=== PATIENT | male | born 1955 | race Caucasian/White ===

== ENCOUNTER 2018-05-16 04:29 | Emergency (ER) | payer OTHER, SELFPAY ==
[2018-05-16 04:30] VITALS: BP 167/82; PULSE 66; RESP 16; TEMP 36.1; O2SAT 100; BMI 28.9
--- NOTE | 2018-05-16 05:11 | EKG12_ITS ---
Test Reason : ABDOMINAL PAIN Blood Pressure : / mmHG Vent. Rate : 057 BPM Atrial Rate : 057 BPM P-R Int : 176 ms QRS Dur : 102 ms QT Int : 424 ms P-R-T Axes : 047 -08 -06 degrees QTc Int : 412 ms Sinus bradycardia Voltage criteria for left ventricular hypertrophy Abnormal ECG Confirmed by MIRNA HOOPER, PRETTY ([id number]), acquisitions editor TEREZA RODRIGUEZ ([id number]) on 05/21/2018 11:19:50 AM Referred By: STEPHANIE Confirmed By:PRETTY BRADLEY MD
--- NOTE | 2018-05-16 05:23 | RAD_ITS ---
STUDY: X-RAY CHEST REASON FOR EXAM: Male, 62 years old. Abdominal pain. TECHNIQUE: PA and lateral chest. COMPARISON: None. FINDINGS: The lungs are clear and expanded. There is no demonstrated pleural abnormality. Normal size heart. Normal mediastinum and beti. Normal visualized pulmonary arteries. Normal visualized aortic arch and descending thoracic aorta. Normal visualized thoracic spine. Surgical anchors right humeral head. There is no demonstrated abnormality of the visualized soft tissue structures of the upper abdomen. RAD/Chest PA and Lateral IMPRESSION: No acute cardiopulmonary disease. Electronically Signed: Darion Branch MD at 5:46 EST , Service support ,
[2018-05-16 05:25] LABS: Absolute Lymphocyte Count 1.67 X10^3/ul (0.83-4.51); Absolute Neutrophil Count 2.6 X10^3/uL (2.0-7.7); Basophil# 0.03 X10^3/uL; Basophil% 0.6 % (0-1); Eosinophil# 0.05 X10^3/uL; Eosinophils% 1.1 % (0-5); Hematocrit 38.4 % (40-54); Hemoglobin 13.3 g/dl (13.0-16.5); Lymphocyte # 1.67 X10^3/ul (4.0); Lymphocyte % 35.5 % (19-41); Mean Corp Hgb Conc 34.6 g/gl (32-36); Mean Corpuscular Volume 89.5 fL (80-94); Mean Platelet Vol. 8.7 fl (6.2-12.0); Monocyte# 0.38 X10^3/uL; Monocyte% 8.1 % (0-10); Neutrophil # 2.58 X10^3/uL (2.7-7.7); Neutrophil % 54.7 % (47-70); Platelet Count 154 K/mm3 (150-450); RBC Distribution Width CV 12.4 % (11.6-14.6); RBC Distribution Width SD 39.8 fl (35.1-43.9); Red Blood Count 4.29 M/mm3 (4.6-6.2); White Blood Count 4.7 K/mm3 (4.4-11.0)
[2018-05-16 05:28] LABS: POSITIVE COUNT NO; POSITIVE DIFFERENTIAL NO; POSITIVE MORPHOLOGY NO
[2018-05-16] MEDS: 0.9% Normal Saline 1,000 ML 999 ML IV (05:38)
[2018-05-16] MEDS: Ondansetron 4 MG/2 ML Vial IV (05:38)
[2018-05-16] MEDS: Morphine 4 MG/ML Syringe IV (05:38)
[2018-05-16 05:40] LABS: ALB/GLOB Ratio 1.2 RATIO (0.9-2.4); AST(SGOT) 21 U/L (15-37); Alanine Aminotransfer ALT/SGPT 29 U/L (16-61); Albumin, Serum 3.6 g/dL (3.2-5.0); Alkaline Phosphatase 130 U/L (45-117); Anion Gap 9 (5-15); BUN 14 mg/dL (7-18); BUN/Creat Ratio 17.2 RATIO (10-20); Calcium,Total 8.7 mg/dL (8.5-10.1); Chloride 110 mmol/L (98-107); Creatinine, Serum 0.82 mg/dL (0.70-1.30); EST Glomerular Filtration Rate 101 mL/min (>60); Est Glom Filt Rate - Afr Amer 123 mL/min (>60); Estimated Creatinine Clearance 101.21 ml/min; Glucose 90 mg/dL (74-106); Lipase 146 U/L (73-393); Potassium 4.1 mmol/L (3.5-5.1); Protein, Total 6.6 g/dL (6.4-8.2); Sodium Level 143 mmol/L (136-145)
--- NOTE | 2018-05-16 06:21 | ED.DEP ---
ED Disposition - Plan for ED Patient: Instructions: ED Abdominal Pain Unkn Cause Prescriptions: Hydrocodone Bitart/Apap 5-325 [[place] 5MG-325MG] 1 tab PO Q6H PRN PRN 3 Days #10 tab PRN Reason: Pain Referrals: [facility],Out of [Primary Care Provider] -
--- NOTE | 2018-05-16 06:29 | ED.DCSUM_ITS ---
- ER Visit Summary Date of Service: 05/16/18 Chief Complaint: Abdominal pain History of Present Illness: The patient is a 62 M who presents with abdominal pain. It is been occurring intermittently for the past 2 months. He was seen at [place] 1 week ago. He had labs and a CT of the abdomen which was normal. He saw Dr. Segundo yesterday. He is scheduled for an EGD on May 24. His pain worsened last night. It is epigastric. He reports it is severe. He has also had some cough. No nausea vomiting diarrhea. No chest pain or shortness of breath. Physical Examination: Blood pressure 167/82 vitals otherwise normal Moist mucous membranes Heart regular rate and rhythm Lungs are clear Abdomen soft nondistended he does have epigastric abdominal tenderness without guarding without rebound Alert Test Results: EKG shows sinus rhythm at a rate of 57. Labs unremarkable including negative troponin normal hepatic function and lipase. Emergency Department Course and Treatment: Patient was treated here with IV fluids morphine and Zofran. He does report symptomatic improvement. He is already on omeprazole and Carafate. I suspect his symptoms are related to gastritis. He was offered [place] but he notes that he has recently been trying to eliminate multiple addictive medications and does not want to take opiates. I explained I am not really have any other medications to offer him at this point. He was advised to follow-up with Dr. Segundo and was discharged home. Treatment Plan: [] Disposition: Discharge Impression: Epigastric abdominal pain This note was generated with [employer] dictation software. It may contain incorrect words, spelling, and punctuation that were not noted in review of the chart prior to signing ED Disposition - Plan for ED Patient: Instructions: ED Abdominal Pain Unkn Cause Prescriptions: Hydrocodone Bitart/Apap 5-325 [[place] 5MG-325MG] 1 tab PO Q6H PRN PRN 3 Days #10 tab PRN Reason: Pain Referrals: [facility],Out of [Primary Care Provider] -
[2018-05-16 06:40] VITALS: RESP 16
== END 2018-05-16 06:44 | disposition home or self-care (01) ==
PROVIDERS: Emergency Provider Emergency Medicine
DX: R10.13 Epigastric pain (principal); I10 Essential (primary) hypertension; Z79.899 Other long term (current) drug therapy
CPT/HCPCS: 71046; 80053; 83690; 84484; 85025; 93005; 96361; 96374; 96375; 99283; J7030; A4216; J2405

== ENCOUNTER 2019-05-01 19:44 | Emergency (ER) | payer OTHER, SELFPAY ==
[2019-05-01 19:46] VITALS: BP 145/85; PULSE 81; RESP 18; TEMP 36.6; O2SAT 100; BMI 24.1
--- NOTE | 2019-05-01 21:25 | RAD_ITS ---
STUDY: X-RAY - RIGHT HAND REASON FOR EXAM: Male, 63 years old. patient states he has a splinter in his hand, located in thenar area near thumb TECHNIQUE: 3 view(s) of the hand. COMPARISON: None. FINDINGS: Normal radiocarpal articulation. Normal distal radioulnar joint. Normal visualized carpal bones. Normal carpal articulations Normal carpometacarpal articulation of the thumb. Normal second through fifth carpometacarpal joints. Demineralized metacarpi. Normal metacarpophalangeal joint of the thumb. Normal interphalangeal joint of the thumb. Normal proximal and distal phalanges of the thumb. Normal metacarpophalangeal joints of the second through fifth fingers. There is diffuse articular joint space narrowing of the proximal and distal interphalangeal joints of the second through fifth fingers, but without erosive changes or periarticular soft tissue swelling. Normal phalanges of the second through fifth fingers. The soft tissue structures are unremarkable. RAD/Hand Min 3 Views IMPRESSION: Demineralization and degenerative change with no evidence of definitive soft tissue foreign body. Electronically Signed: Bob Andres DO at 21:46 EST , Service support ,
--- NOTE | 2019-05-01 23:32 | ED.DEP ---
ED Disposition - Plan for ED Patient: Instructions: FOREIGN BODY, Soft Tissue [Not Removed] Prescriptions: Clindamycin [Cleocin] 300 mg PO 4X/DAY #80 capsule Referrals: ES BERNSTEIN [Other] Lauro Lott MD [STAFF PHYSICIAN] -
--- NOTE | 2019-05-01 23:36 | ED.VISSUMM ---
- ER Visit Summary Date of Service: 05/01/19 Chief Complaint: Splinter History of Present Illness: The patient is a 63 M presenting with splinter in his right hand. Patient was sanding wood and felt a wood splinter go into his right hand. This occurred just prior to arrival. He went to urgent care and was advised to come to the ED. His tetanus is up-to-date. He denies other injuries. Physical Examination: Vitals are stable. Patient is afebrile. Alert no acute distress. HEENT exam is unremarkable. Neck is supple. Lungs are clear and equal bilaterally. Heart is regular rate and rhythm. Extremities puncture wound to right thenar eminence. Tendon function normal. Normal cap refill. Skin is warm and dry. No focal neurologic deficit. Remainder of exam is unremarkable. Emergency Department Course and Treatment: Right hand x-ray showed demineralization and degenerative change with no evidence of definitive soft tissue foreign body. Area was anesthetized with lidocaine. Probed for foreign body without success. Irrigated the wound. He was given clindamycin. Advised to follow-up with Dr. Lott. Advised return to ED for worsening complaints. Disposition: Discharge home Impression: Splinter right hand This note was generated with [employer] dictation software. It may contain incorrect words, spelling, and punctuation that were not noted in review of the chart prior to signing ED Disposition - Plan for ED Patient: Instructions: FOREIGN BODY, Soft Tissue [Not Removed] Prescriptions: Clindamycin [Cleocin] 300 mg PO 4X/DAY #80 cap Prescription Printed Referrals: ES BERNSTEIN [Other] Lauro Lott MD [STAFF PHYSICIAN] -
[2019-05-01] MEDS: Clindamycin HCl 150 MG Capsule 300 MG PO (23:44)
[2019-05-01 23:47] VITALS: RESP 18; O2SAT 99
== END 2019-05-01 23:49 | disposition home or self-care (01) ==
PROVIDERS: Emergency Provider Emergency Medicine
DX: S60.551A Superficial foreign body of right hand, initial encounter (principal); W45.8XXA Other foreign body or object entering through skin, initial encounter; Y93.9 Activity, unspecified; Y92.9 Unspecified place or not applicable; I10 Essential (primary) hypertension; Z79.899 Other long term (current) drug therapy
CPT/HCPCS: 73130; 99282

== ENCOUNTER 2019-05-06 08:50 | Day surgery (SDC) | payer OTHER, SELFPAY ==
[2019-05-05 09:49] VITALS: BMI 24.1
--- NOTE | 2019-05-05 22:50 | HP.PCM_ITS ---
History and Physical Date of Admission: 05/06/19 HISTORY OF PRESENT ILLNESS 63 year old man presents with a traumatic puncture wound right palm at the thenar eminence with a retained wooden splinter foreign body when he sustained the injury on 05/01/19 while sanding some wood at home. He went to the ED X-ray showed no fracture and no foreign body. An attempt was done in the ED to remove the wooden splinter foreign body without success. He was discharged on Cleocin. He denies fever. He has minimal discomfort unless he grabs something in his palm that presses against the puncture wound. He denies drainage as the puncture wound has scabbed over. He presents today for further evaluation and treatment. PAST MEDICAL HISTORY Abdominal aortic aneurysm Arthritis Bone fracture Degenerative disc disease, cervical Gastrointestinal problem High cholesterol History of back problems Hives Kidney stones Neurogenic bladder Sliding hiatal hernia Trigeminal neuralgia of left side of face UTI (urinary tract infection) High blood pressure PAST SURGICAL HISTORY Deviated nasal septum appendectomy broken finger repair of right rotator cuff left rotator cuff repair ALLERGIES Penicillins MEDICATIONS Amlodipine Besylate/Benazepril Mometasone Furoate [Nasonex] Omeprazole Pravastatin [Pravachol] Clindamycin [Cleocin] Metoprolol Succinate Naproxen Sodium FAMILY HISTORY Father - Angina at rest, Heart disease, Hypertension, High cholesterol Mother - Arthritis, Heart disease, Hypertension Brother - Diabetes SOCIAL HISTORY Smoking Status: Never smoker alcohol intake: never substance use type: does not use REVIEW OF SYSTEMS General - Denies fever, fatigue, and weight loss. Eyes - Denies cataracts and glaucoma. ENT - Denies nasal congestion and sore throat. Has chronic sinus problems. Endocrine - Denies excessive thirst and urination. Skin - Denies suspicious lesions and skin cancer. Musculoskeletal - Contreras s joint pain, joint stiffness, and back pain. Denies weakness of muscles and joints and arthritis. Neuro - Has headaches. Cardiovascular - Denies chest pain, fatigue, and shortness of breath with exertion. Psych - Denies anxiety and depression. Respiratory - Denies chronic cough and shortness of breath. Gastrointestinal - Denies nausea, vomiting, diarrhea, and constipation. Hematologic - Denies abnormal bruising and bleeding. Genitourinary - Denies hematuria and urinary frequency. PHYSICAL EXAMINATION General - Alert and Oriented. HEENT - PERRL. EOMI. Throat is clear. Neck - Supple and nontender. No cervical adenopathy. Lungs - Clear to auscultation. Heart - Regular rate and rhythm. Abdomen - Soft and nondistended. Extremities - FROM. No axillary adenopathy. Radial pulses are palpable. Patient is right hand dominant. On the right palm at the thenar eminence is a puncture wound. No evidence of infection. Patient states the splint went laterally toward the central palm. He is able to make a fist and has reasonable stacker straightener strength but has limitations with increasing stacker straightener secondary to discomfort. No purulent drainage noted. Fingers are warm with good capillary refill. No sensory deficits. Neuro - CN II-XII grossly intact. Psych - Normal mood and affect. ASSESSMENT 1. Puncture wound right palm at thenar eminence with foreign body. 2. Wooden splinter foreign body right palm at thenar eminence PLAN X-ray reviewed. No fracture and no foreign body seen. Continue Cleocin antibiotics. Recommend operative intervention with surgical preparation right palm at thenar eminence with excisional debridement puncture wound and irrigation and drainage and removal wooden splinter foreign body. Surgery will be done under Onyx Block anesthesia on an outpatient basis. Will send tissue to Pathology for analysis as well as to Microbiology for culture. A positive culture will necessitate antibiotic therapy. Will leave the wound partially open and begin wound care with Silver dressing changes daily. After surgery will encourage range of motion exercises to minimize stiffness. Patient was informed of the risks and complications of the procedure including alternatives to surgery. These were discussed with the patient personally. Patient voices understanding and wishes to proceed. Some of the risks and complications were included in a form from the [place] [employer]. Some of the risks and complications that were discussed included but were not inclusive of failure to diagnose including symptom relief, pain, infection, numbness, stiffness, loss of digit, RSD (CRPS), need for further surgery, contracture, and wound healing problems.
--- NOTE | 2019-05-06 08:57 | EKG12_ITS ---
Test Reason : PRE OP Blood Pressure : / mmHG Vent. Rate : 066 BPM Atrial Rate : 066 BPM P-R Int : 162 ms QRS Dur : 098 ms QT Int : 380 ms P-R-T Axes : 048 -07 028 degrees QTc Int : 398 ms Normal sinus rhythm Normal ECG When compared with ECG of 16-MAY-2018 05:24, Nonspecific T wave abnormality has replaced inverted T waves in Inferior leads Confirmed by QUETA LOBATO ([id number]), editor book LENA NELSON ([id number]) on 05/09/2019 9:52:03 AM Referred By: Lauro Lott Confirmed By:QUETA LOBATO
[2019-05-06 09:26] VITALS: BP 135/80; PULSE 70; RESP 15; TEMP 36.8; O2SAT 99; BMI 24.7
[2019-05-06] MEDS: Lactated Ringers 1,000 ML 100 ML IV (09:35)
[2019-05-06 09:44] LABS: BUN 18 mg/dL (7-18); Chloride 112 mmol/L (98-107); Creatinine, Serum 0.89 mg/dL (0.70-1.30); Estimated Creatinine Clearance 94.76 ml/min; Glucose 97 mg/dL (74-106); Sodium Level 144 mmol/L (136-145)
[2019-05-06 09:45] LABS: Anion Gap 4 (5-15)
[2019-05-06 09:54] LABS: BUN/Creat Ratio 20.3 RATIO (10-20); EST Glomerular Filtration Rate 92 mL/min (>60); Est Glom Filt Rate - Afr Amer 111 mL/min (>60); Potassium 4.5 mmol/L (3.5-5.1)
--- NOTE | 2019-05-06 10:25 | FORE_PTH ---
PATIENT: CONNIE MORGAN [place] [facility] [place][id number] AGE/SX: 63/M ROOM: RE05/06/[address]: Dr. Lauro Lott MD : [id number] BED: DIS: 05/06/2019 SPEC #: [id number] RECD: 05/06/19 11:53 STATUS: EH VIRI #: [id number] LEV: 05/06/19 10:[address]: Lauro Lott DEPT: SURGICAL PATHOLOGY RECD BY: Dorian Childs Tissues: FOREIGN BODY Procedures: Special Stain Group I Surgery Specimen Level III AFB Stain (control) GMS Stain (control) HEADER OPERATION: Surgical preparation palm at thenar eminence PRE-OP DIAGNOSIS: Puncture wound right palm at thenar eminence with foreign body TISSUE SUBMITTED: Wooden splinter foreign body right palm MICROSCOPIC DIAGNOSIS Wooden splinter foreign body right palm: A piece of hyperkeratotic skin with acute and chronic inflammation and reactive changes. Special stains for acid fast bacilli and fungi are negative for organisms; matched controls are appropriate. Wooden splinter foreign body (gross only). GRACE:ofelia 05/07/19 MICROSCOPIC DESCRIPTION Slides are reviewed. GROSS DESCRIPTION Received in fixative is one container labeled with the patient's name and designated wooden splinter foreign body right palm. The specimen consists of a round piece of gillette-white skin with underlying tissue measuring 0.5 x 0.6 cm and up to 0.5 cm in thickness. This piece is bisected. Also present in the container is wooden splinter foreign body measuring 1.7 x 0.2 x 0.1 cm. The skin piece is entirely submitted in one cassette. The wooden splinter foreign body is for gross identification only. / GRACE:ofelia 05/06/19 TC:2 CPT: 47578, 69526 x2
--- NOTE | 2019-05-06 10:55 | PCM.OPRPT ---
Report of Operation Date of Procedure: 05/06/19 Pre-Operative Diagnosis: 1. Puncture wound right palm at thenar eminence with foreign body. 2. Wooden splinter foreign body right palm at thenar eminence. Post-Operative Diagnosis: 1. Puncture wound right palm at thenar eminence with foreign body. 2. Submuscular wooden splinter foreign body right palm at thenar eminence. Surgery/Procedure Performed:: Surgical preparation right palm at thenar eminence with excisional debridement puncture wound and irrigation and drainage and removal submuscular wooden splinter foreign body. Description of Surgical Findings:: 63 year old man presents with a traumatic puncture wound right palm at the thenar eminence with a retained wooden splinter foreign body when he sustained the injury on 05/01/19 while sanding some wood at home. He went to the ED X-ray showed no fracture and no foreign body. An attempt was done in the ED to remove the wooden splinter foreign body without success. He was discharged on Cleocin. He denies fever. He has minimal discomfort unless he grabs something in his palm that presses against the puncture wound. He denies drainage as the puncture wound has scabbed over. Patient was informed of the risks and complications of the procedure including alternatives to surgery. These were discussed with the patient personally. Patient voices understanding and wishes to proceed. Some of the risks and complications were included in a form from the [place] [employer]. Some of the risks and complications that were discussed included but were not inclusive of failure to diagnose including symptom relief, pain, infection, numbness, stiffness, loss of digit, RSD (CRPS), need for further surgery, contracture, and wound healing problems. Total tourniquet time - 16 minutes. Length of wooden splinter foreign body - 2.2 cm. The tract of the wooden splinter foreign body extended through the abductor pollicis brevis muscle into the flexor pollicis brevis muscle. type proof reproducer: None Type of Anesthesia:: General Specimen's removed: Right palm at thenar eminence puncture wound and wooden splnter foreign body to Pathology and Microbiology. Drains: None. Estimated Blood Loss (mL): 2 ml. Description of Procedure: Patient was taken to OR in supine position and was placed under general anesthesia. The right upper extremity was prepped and draped in the usual fashion. SCD's were placed for DVT prophylaxis. Perioperative antibiotics were given intravenously. Using xylocaine with epinephrine, the area of the puncture wound right palm at thenar eminence was infiltrated for postop pain relief. The right upper extremity was elevated and wrapped with an Esmarch bandage as the tourniquet was elevated to 250 mmHg. Under loupe magnification, I proceeded with surgical preparation of the right palm at thenar eminence with excisional debridement of the puncture wound in a circular fashion. Excision extended down to the thenar muscles. The wooden splinter foreign body was deep to the abductor pollicis muscle. I extended the wound in a zig zag fashion both proximally and distally to further expose the thenar muscles. The wooden splinter foreign body was palpable laterally toward the central aspect of the palm into the flexor pollicis brevis muscle. I was able to retrieve the wooden splinter foreign body in its entirety. It measured 2.2 cm. The tract of the foreign body into the muscle was irrigated with saline. Some exudate present and some scar tissue present was excised and debrided as well and some of the tissue was sent to Microbiology for culture and to Pathology for analysis to rule out carcinoma. The tip of the foreign body was also sent to Microbiology as well. No other palpable foreign bodies were noted and no other visual foreign bodies were noted. I then loosely approximated the zig and the zag portion of the wound with 5-0 Prolene simple interrupted and vertical mattress interrupted sutures. I then dressed the central puncture wound area with Silver dressing as well as I placed Silver dressing into the zig and the zag portion of the incisions to help absorb any drainage initially. The size of the central puncture wound after excision and debridement was 1 x 0.6 cm. The tourniquet was released after 16 minutes. Hemostasis was obtained with elevation and compression. A small amount of oozing at the skin edges was cauterized. 2x2 gauze was then applied to the wound followed by compression lovely wrap. Patient tolerated the procedure well and was sent to PACU in satisfactory condition. Patient will be sent home on antibiotics and pain medication. He will keep his right hand elevated during the initial postoperative period. Patient will followup in a couple of days for a wound check and for discussion of the pathology report. Will also change the Silver dressing and instruct the family on the Silver dressing changes. I will remove the sutures in 2 weeks. Grafts/Implants Used: None. - Complications None. - Admit VTE Documentation VTE Present on Admission: No VTE Mechan Device Prophylaxis: SCD's VTE Pharm Prophylaxis ordered?: No Code Visit Surgery Charges CPT - 51981 ICD-10 - S61.441A, S60.551A 65626 S60.551A, S61.441A
--- NOTE | 2019-05-06 11:02 | PCM.DC ---
You will use the following diet at home:: No restrictions Discharge Activity: May not drive while taking narcotic pain medications., May Shower - place plastic bag over right hand when showering., - - elevate right hand. no heavy lifting right hand. May shower in (days): 1 - place plastic bag over right hand when showering. May resume sexual activity in: No Restrictions Weight Bearing Status: Weight bearing as tolerated Lifting Restrictions: 20 lbs. Keep extremity elevated above heart level: Right Arm Call your doctor if your incision/area has: Continuous Slow Oozing, Sudden Increased Bleeding, Increased Pain/ Swelling, Increased Redness, Foul Smelling Discharge, Swelling at the incision site Call your doctor if you observe: Fever of 101 or Higher, Coldness, Increased Pain, Shortness of breath, Chest pain, Calf discomfort, Uncontrolled pain Suture Line Care: - - Silver dressing changes daily. Will instruct patient at first office visit. Change Dressing in (Days):: 2 - will change in office. Cleanse incision/area with: - - werar plastic bag over right hand when showering. Allergies/Adverse Reactions: Allergies Penicillins Allergy (Verified 05/06/19 09:10) Swelling Medications to take at Discharge Amlodipine Besylate/Benazepril [Amlodipine-Benazepril 5-20 mg] 1 ea PO QHS 05/16/18 Mometasone Furoate [Nasonex] 1 spray NASAL BID 05/16/18 Omeprazole 20 mg PO BID 05/16/18 Pravastatin [Pravachol] 20 mg PO QHS 05/16/18 Clindamycin [Cleocin] 300 mg PO 4X/DAY #80 cap 05/01/19 Metoprolol Succinate 25 mg PO QHS 05/01/19 Clindamycin HCl [Cleocin] 300 mg PO TID #30 cap 05/06/19 Lactobacillus Acidophilus/Fos [Acidophilus Probiotic Tablet] 1 ea PO BID #20 tab 05/06/19 Oxycodone HCl/Acetaminophen [Percocet 5/325] 1 tablet PO Q6H PRN PRN 7 Days #30 tablet 05/06/19 The following prescriptions were given: Lactobacillus Acidophilus/Fos [Acidophilus Probiotic Tablet] 1 ea PO BID #20 tab Transmission Status: Pending to [facility]/pharmacy #[id number] Clindamycin HCl [Cleocin] 300 mg PO TID #30 cap Transmission Status: Pending to [facility]/pharmacy #[id number] Oxycodone HCl/Acetaminophen [Percocet 5/325] 1 tablet PO Q6H PRN PRN 7 Days #30 tablet PRN Reason: Pain Score 4-5/10 Transmission Status: Received by [facility]pharmacy #[id number] Primary Care Physician: ES BERNSTEIN [Other] Test Results: Test results from this visit will be discussed in further detail at your follow-up appointment, if applicable. Please Follow Up With: Lauro Lott MD When: 05/08/19. call [phone] for appt. Proposed Discharge Date: 05/06/19
[2019-05-06 11:07] VITALS: BP 126/79; BP 135/80; PULSE 98; RESP 16; TEMP 36.5; O2SAT 98
[2019-05-06 11:15] VITALS: BP 131/78; BP 135/80; PULSE 84; RESP 16; O2SAT 98
[2019-05-06 11:30] VITALS: BP 135/80; PULSE 80; RESP 16; O2SAT 98
[2019-05-06] MEDS: BENZOCAINE/MENTHOL 1 LOZENGE 2 LOZENGE MUCOUS MEM (11:35)
[2019-05-06 11:45] VITALS: BP 119/79; BP 135/80; PULSE 80; RESP 16; TEMP 37.1; O2SAT 97
[2019-05-06 12:07] VITALS: BP 127/61; BP 135/80; PULSE 77; RESP 16; TEMP 36.6; O2SAT 98
== END 2019-05-06 12:41 | disposition home or self-care (01) ==
LOC: SDC 08:52 → AC 08:53
PROVIDERS: Anesthesiology; Referring Provider Surgery; Visit Provider Surgery
PROC: (CPT 20525; principal; 2019-05-06 10:10)
DX: S61.441A Puncture wound with foreign body of right hand, initial encounter (principal); W45.8XXA Other foreign body or object entering through skin, initial encounter; Y93.9 Activity, unspecified; Y92.009 Unspecified place in unspecified non-institutional (private) residence as the place of occurrence of the external cause; Y99.9 Unspecified external cause status; N31.9 Neuromuscular dysfunction of bladder, unspecified; I10 Essential (primary) hypertension; E78.00 Pure hypercholesterolemia, unspecified; M19.90 Unspecified osteoarthritis, unspecified site; K21.9 Gastro-esophageal reflux disease without esophagitis; Z79.899 Other long term (current) drug therapy; Z88.0 Allergy status to penicillin; Z87.442 Personal history of urinary calculi
CPT/HCPCS: 20525; 80048; 87070; 87075; 87102; 87205; 87206; 88300; 88304; 88312; 93005; J7120; J2405

== ENCOUNTER 2019-06-18 05:39 | Emergency (ER) | payer OTHER, SELFPAY ==
[2019-05-28 08:56] VITALS: BMI 24.7
[2019-06-18 05:40] VITALS: BP 128/69; PULSE 64; RESP 16; TEMP 36.3; O2SAT 100; BMI 25.7
--- NOTE | 2019-06-18 05:43 | ED.RN ---
RN CALLED FOR EKG, PULLED OLD EKGS FOR
--- NOTE | 2019-06-18 05:51 | CT_ITS ---
STUDY: CT BRAIN WITHOUT CONTRAST REASON FOR EXAM: Male, 63 years old. SYNCOPE WHILE GOING TO THE RESTROOM THIS AM RADIATION DOSAGE (If Supplied By Facility): CTDIvol = ( 44.99 ) mGy, DLP = ( 745.49 ) mGycm TECHNIQUE: Transaxial CT imaging of the brain was performed without administration of intravenous contrast material. Individualized dose optimization techniques were used for this CT. COMPARISON: No relevant priors. FINDINGS: Normal soft tissue structures. Normal calvarium. Normal size ventricles and extra-axial spaces for the patient''s age. Normal white matter tracts of the cerebral hemispheres. Normal basal ganglia and thalami. Normal brainstem. Normal cerebellum. There is no intracranial hemorrhage. There are no findings of an acute ischemic infarction. Normal visualized paranasal sinuses. CT/Brain/Head without Contrast IMPRESSION: Normal unenhanced CT scan of the brain. Electronically Signed: Wilfred Parker MD at 6:52 EDT , Service support ,
--- NOTE | 2019-06-18 05:51 | RAD_ITS ---
STUDY: X-RAY CHEST REASON FOR EXAM: Male, 63 years old. SYNCOPE -- DENIES ANY CHEST PAIN OR BREATHING PROBLEMS TECHNIQUE: Frontal and lateral views of the chest. COMPARISON: 05/16/2018. FINDINGS: The lungs are clear and expanded. There is no demonstrated pleural abnormality. Normal size heart. Normal mediastinum and beti. Normal visualized pulmonary arteries. Normal visualized aortic arch and descending thoracic aorta. There are multilevel degenerative changes of the visualized thoracic spine. There has been previous bilateral shoulder surgery. There is no demonstrated abnormality of the visualized soft tissue structures of the upper abdomen. RAD/Chest PA and Lateral IMPRESSION: No evidence for acute cardiopulmonary pathology. Electronically Signed: Wilfred Parker MD at 6:19 EDT , Service support ,
--- NOTE | 2019-06-18 05:51 | EKG12_ITS ---
Test Reason : SYNCOPE Blood Pressure : / mmHG Vent. Rate : 065 BPM Atrial Rate : 065 BPM P-R Int : 164 ms QRS Dur : 090 ms QT Int : 388 ms P-R-T Axes : 048 004 038 degrees QTc Int : 403 ms Normal sinus rhythm Normal ECG Confirmed by EULOGIO HOOPER, KYRIE ([id number]), pictures editor LENA NELSON ([id number]) on 06/23/2019 11:22:26 AM Referred By: ALICE Confirmed By:BANDAR KRISHNAN MD
--- NOTE | 2019-06-18 05:52 | CT_ITS ---
STUDY: CT CERVICAL SPINE WITHOUT CONTRAST REASON FOR EXAM: Male, 63 years old. Syncope while going to the restroom this morning. RADIATION DOSAGE (If Supplied By Facility): CTDIvol = ( 11.79 ) mGy, DLP = ( 234.72 ) mGycm TECHNIQUE: High resolution transaxial imaging was performed without contrast material. Sagittal and coronal images were reconstructed. Individualized dose optimization techniques were used for this CT. COMPARISON: None FINDINGS: Normal craniovertebral junction. There are degenerative changes of the anterior atlantoaxial articulation. Normal odontoid process. There is partial straightening of the normal lordotic curve, a nonspecific finding, which may be due to positioning or which might be due to muscle spasm. Normal vertebral bodies and posterior osseous elements. C2-3: Normal endplates. Normal disc height and morphology. Degenerative changes left apophyseal joint. Normal central canal and intervertebral neuroforamina. C3-4: Broad posterior disc osteophyte complex. Degenerative changes uncovertebral and apophyseal joints.. Mild spinal stenosis with central canal AP diameter of 9.5 mm.. Mild narrowing right and severe narrowing left intervertebral neuroforamina. C4-5: 2 mm anterolisthesis, on a degenerative basis. Mild spondylosis.. Normal disc height and morphology. Degenerative changes left uncovertebral and apophyseal joints. Normal central canal. Right and severe narrowing left intervertebral neuroforamina. C5-6: Spondylosis. Disc space narrowing. Broad posterior disc osteophyte complex. Degenerative changes bilateral uncovertebral joints.. Mild spinal stenosis with central canal AP diameter of 9 mm. . Normal right and severe narrowing left intervertebral neuroforamina. C6-7: Spondylosis. Disc space narrowing. Broad posterior disc osteophyte complex. Degenerative changes bilateral uncovertebral joints.. Normal central canal. Mild narrowing right and moderate narrowing left intervertebral neuroforamina. C7-T1: Normal endplates. Mild disc space narrowing. Degenerative changes uncovertebral joints.. Normal central canal and intervertebral neuroforamina. Normal visualized soft tissue structures. CT/Spine Cervical without Contras IMPRESSION: Multilevel degenerative changes, as described above. No demonstrated fracture. Electronically Signed: Wilfred Parker MD at 7:01 EDT , Service support ,
--- NOTE | 2019-06-18 05:52 | ED.VIS.GEN ---
History of Present Illness Chief Complaint: Syncope Informant: Patient Narrative: Patient stated he had a syncopal episode. He woke up this morning and walked to the bathroom. He has to straight cath himself is in the process of doing this. He got lightheaded and passed out. He fell to the ground. He struck his head on the ground. He has mild pain in the back of his head. He has some mild soreness in the back of his neck. He has an abrasion to his upper thoracic region without pain. He is never passed out before. Current severity is mild. Denies any chest pain or shortness of breath or other symptoms. Patient reports a history of AAA however it is very small. He stated on his ultrasound this year for evaluation annually they could not even find it. Denies any abdominal pain or back pain - Past Medical History (1) Foreign body of right hand Status: Acute Comment: wooden splinter foreign body right palm at thenar eminence (2) Injury while performing home maintenance Status: Acute (3) Puncture wound of right hand with foreign body Status: Acute Comment: wooden splinter foreign body right palm at thenar eminence (4) Retained foreign body of hand Status: Acute Comment: wooden splinter foreign body right palm at thenar eminence Past Medical History - Allergies and Home Meds Allergies/Adverse Reactions: Allergies corn Allergy (Verified 06/18/19 05:43) Swelling Penicillins Allergy (Verified 06/18/19 05:43) Swelling Primary Care Physician: [facility] Doctor,Out of [NON-STAFF] - Prior records reviewed: Yes Past Medical History: - - See problem list Surgical History: - - Reviewed Smoking Status: Never smoker Alcohol: None Drugs: None Review of Systems General: Denies: Chills, Fever, Sweats Eyes: Denies: Visual changes - bilaterally, Diplopia ENT: Denies: Rhinorrhea, Sore throat Cardiovascular: Denies: Chest pain, Palpitations Respiratory: Denies: Dyspnea, Cough, Dyspnea on exertion Gastrointestinal: Denies: Abdominal pain, Nausea, Vomiting, Diarrhea, Melena, Hematochezia Genitourinary: Denies: Dysuria, Hematuria, Frequency Musculoskeletal: Reports: Neck pain. Denies: Back pain, Extremity Pain Skin: Denies: Rash, Wounds Neurological: Denies: Headache, Weakness, Numbness Physical Exam Vital Signs/Narrative: Vital Signs Temp Pulse Resp BP Pulse Ox 06/18/19 05:40 97.4 F L 64 16 128/69 H 100 General: Well nourished, Well developed, No Acute Distress Head: Normocephalic, Atraumatic Eyes: Perrl, EOMI ENT: Moist mucous membranes, No rhinorrhea Neck: - - Lower midline tenderness without bony step-off or deformity. Negative for: Supple, Nontender Cardiovascular: Regular rate, Regular rhythm, No murmurs Respiratory: No distress, CTA bilaterally, Chest nontender Abdomen: Soft, Nontender, Nondistended, Normal bowel sounds Back: Nontender, Normal Inspection Extremities: Nontender, No edema Skin: No rash, - - Small abrasion to his right upper back paraspinal and left scapular paraspinal region. Negative for: Normal color Neurological: Alert, Oriented x3, Cranial nerves II-XII grossly intact, Normal Strength, Normal Sensation Psychological: Normal affect, Normal Mood Diagnostic/Tx/Re-eval - Medical Decision Making EKG obtained shows normal sinus rhythm at a rate of 65 with no ischemia or arrhythmia. Lab work chest x-ray CT head neck obtained. Lab work shows a BUN of 25. Otherwise CBC electrolytes unremarkable. Troponin negative. CT head neck negative for acute abnormality. Chest x-ray normal. On reevaluation patient continues resting comfortably without symptoms. I suspect he had a vasovagal episode he got up early this morning and straight cath himself. I suspect that this caused his vagal nerve to hyper stimulate. His [place] syncope rules are 0 on both scales. I have a low suspicion for emergent cause of his symptoms. I feel he can be discharged to follow-up as an outpatient ED Disposition - Plan for ED Patient: Disposition: Home or Assisted Living Diagnosis: Vasovagal syncope Instructions: SYNCOPE, Vasovagal Referrals: [facility] Doctor,Out of [NON-STAFF] -
[2019-06-18 06:03] LABS: Absolute Lymphocyte Count 2.29 X10^3/uL (0.83-4.51); Absolute Neutrophil Count 2.7 X10^3/uL (2.0-7.7); Basophil# 0.03 X10^3/uL; Basophil% 0.5 % (0-1); Eosinophil# 0.05 X10^3/uL; Eosinophils% 0.9 % (0-5); Hematocrit 40.7 % (40-54); Hemoglobin 13.4 g/dL (13.0-16.5); Lymphocyte # 2.29 X10^3/ul (4.0); Lymphocyte % 41.9 % (19-41); Mean Corp Hgb Conc 32.9 g/dL (32-36); Mean Corpuscular Volume 94.2 fL (80-94); Mean Platelet Vol. 8.7 fl (6.2-12.0); Monocyte# 0.37 X10^3/uL; Monocyte% 6.8 % (0-10); NRBC Flagged by Analyzer 0 % (0-5); Neutrophil # 2.72 X10^3/uL (2.7-7.7); Neutrophil % 49.7 % (47-70); Platelet Count 155 K/mm3 (150-450); RBC Distribution Width CV 12.6 % (11.6-14.6); RBC Distribution Width SD 43.3 fl (35.1-43.9); Red Blood Count 4.32 M/mm3 (4.6-6.2); White Blood Count 5.5 K/mm3 (4.4-11.0)
[2019-06-18 06:25] LABS: Anion Gap 4 (5-15); BUN 25 mg/dL (7-18); BUN/Creat Ratio 27.9 RATIO (10-20); Calcium,Total 8.6 mg/dL (8.5-10.1); Chloride 110 mmol/L (98-107); EST Glomerular Filtration Rate 91 mL/min (>60); Est Glom Filt Rate - Afr Amer 110 mL/min (>60); Estimated Creatinine Clearance 91.01 ml/min; Glucose 92 mg/dL (74-106); Potassium 4.2 mmol/L (3.5-5.1); Sodium Level 141 mmol/L (136-145)
[2019-06-18 07:15] VITALS: BP 122/71; PULSE 64; RESP 12; O2SAT 99
== END 2019-06-18 07:15 | disposition home or self-care (01) ==
PROVIDERS: Emergency Provider Emergency Medicine
DX: R55 Syncope and collapse (principal)
CPT/HCPCS: 70450; 71046; 72125; 80048; 84484; 85025; 93005; 99285; A4216

== ENCOUNTER → 2020-01-16 07:45 | Outpatient (CLI) | payer MEDICARE, OTHER, SELFPAY ==
--- NOTE | 2020-01-16 07:53 | RAD_ITS ---
STUDY: X-RAY - ESOPHAGUS (BARIUM SWALLOW) WITH FLUOROSCOPY REASON FOR EXAM: Male, 64 years old. Full feeling, unable to eat large meals, gassy and belching, known sliding hernia, TECHNIQUE: 15 view(s) of the esophagus were obtained following swallowing of barium. FLUOROSCOPY TIME (if supplied): (0:30) minutes/seconds COMPARISON: None. FINDINGS: There is no demonstrated esophageal foreign body. There is no demonstrated stricture or mucosal abnormality. Normal gastroesophageal junction, without a demonstrated hiatal hernia. The patient ingested a 12 mm tablet of barium without any difficulty. Normal visualized aortic arch and descending thoracic aorta. Normal visualized pulmonary parenchyma. Normal visualized osseous structures of the thorax. RAD/Esophagus Dual Contrast IMPRESSION: Normal plain film x-ray examination (barium swallow) of the esophagus. Electronically Signed: Chente Najera, at 14:27 EDT , Service support ,
== END ==
PROVIDERS: Referring Provider Internal Medicine Gastroenterology; Visit Provider Internal Medicine Gastroenterology
DX: K21.9 Gastro-esophageal reflux disease without esophagitis (principal)
CPT/HCPCS: 74221

== ENCOUNTER 2020-08-23 21:30 | Observation (INO) | payer MEDICARE, OTHER, SELFPAY ==
[2020-08-23 21:31] VITALS: BP 137/84; PULSE 75; RESP 18; TEMP 36.4; O2SAT 98; BMI 27.6
--- NOTE | 2020-08-23 21:50 | EKG12_ITS ---
Test Reason : CP Blood Pressure : / mmHG Vent. Rate : 076 BPM Atrial Rate : 076 BPM P-R Int : 164 ms QRS Dur : 090 ms QT Int : 362 ms P-R-T Axes : 050 -23 -07 degrees QTc Int : 407 ms Normal sinus rhythm Voltage criteria for left ventricular hypertrophy Abnormal ECG Confirmed by ELMO HOOPER, STEPHANIE ([id number]), script editor EDWARDO TOTH ([id number]) on 08/25/2020 9:41:44 AM Referred By: SUNITHA Confirmed By:STEPHAINE BORREGO MD
--- NOTE | 2020-08-23 21:51 | EX.ED.DYSGE1 ---
HPI History of Present Illness Chief Complaint: Chest Pain Narrative Narrative: Patient presents with chest pain that started about a half an hour ago and lasted 15 minutes. It did radiate to his left arm and he felt pressure in his left arm and chest. He has a strong family history of cardiac disease. [facility] Medical History (Updated 08/23/20 @ 22:[address] Dmitry Reza MD) Abdominal aortic aneurysm Allergies Arthritis Bone fracture Chest pain Degenerative disc disease, cervical Gastrointestinal problem GERD (gastroesophageal reflux disease) High blood pressure High cholesterol History of back problems Hives Kidney stones Migraines Neurogenic bladder Osteoporosis Retained foreign body of hand Sliding hiatal hernia Trigeminal neuralgia of left side of face UTI (urinary tract infection) Vision loss of left eye Vision loss of right eye Home Medications amlodipine-benazepril 1 ea PO QHS 05/16/18 [History Last Taken 05/05/19 22:00] mometasone 1 spray NASAL BID 05/16/18 [History Last Taken Unknown] omeprazole 20 mg PO BID 05/16/18 [History Last Taken 05/05/19 22:00] pravastatin 20 mg PO QHS 05/16/18 [History Last Taken Unknown] metoprolol succinate 25 mg PO QHS 05/01/19 [History Last Taken 05/05/19 22:00] Allergy/AdvReac Type Severity Reaction Status Date / Time corn Allergy Swelling Verified 06/18/19 05:43 Penicillins Allergy Swelling Verified 06/18/19 05:43 Family History Father Angina at rest Heart disease Hypertension High cholesterol Mother Arthritis Heart disease Hypertension Brother Diabetes Surgical History (Updated 06/18/19 @ 05:[address] Alonso Leroy MD) Deviated nasal septum History of appendectomy History of broken finger History of repair of right rotator cuff History of retained foreign body fully removed S/P left rotator cuff repair Social History (Updated 05/30/19 @ 10:22 by Caron Meade NP, [facility]IE[facility]) Smoking Status: Never smoker alcohol intake: never substance use type: does not use additional social history: DOES NOT USE ASPIRIN DOES USE IBUPROFEN NEEDED ROS ROS ED ROS Narrative Past medical history: Hypertension, hypercholesterolemia Medications: Reviewed Social history: Noncontributory Family history: As in HPI, strong cardiac history Review of systems: All systems negative except as indicated General: No fever Eyes: No visual changes ENT: No upper airway congestion, normal voice Neck: No neck pain Cardiovascular: Chest pain as in HPI Respiratory: No shortness of breath or cough Gastrointestinal: No abdominal pain, nausea vomiting or diarrhea Genitourinary: No dysuria Musculoskeletal: Denies myalgias no difficulty with ambulation Skin: No rash Neurological: No memory loss, confusion or any focal weakness Psych: No recent behavioral changes Hematologic: No easy bleeding or easy bruising EXAM Physical Exam Narrative Exam Narrative: Physical exam General: Well nourished, Well developed, No Acute Distress Head: Normocephalic, Atraumatic Eyes: Conjunctiva not pale ENT: Moist mucous membranes Neck: Supple, Nontender, No lymphadenopathy Cardiovascular: Regular rate, Regular rhythm Respiratory: No distress, CTA bilaterally Abdomen: Soft, Nontender, Nondistended Back: Nontender, Normal Inspection. Negative for: CVA tenderness Extremities: Nontender, No edema Skin: Normal color, No rash Neurological: Alert, Normal Strength, Normal Sensation Psychological: Normal affect Const Vital Signs: 08/23/20 21:31 08/23/20 22:06 Temperature 97.5 F L Temperature Source Temporal Pulse Rate 75 Respiratory Rate 18 Blood Pressure 137/84 H Blood Pressure Mean 101 Pulse Ox 98 94 Oxygen Delivery Method Room Air Room Air MDM MDM MDM Narrative Medical decision making narrative: Patient has a work-up which is unremarkable however his heart score is a 5 I will admit him. Lab Data Labs: Laboratory Results - last 24 hr 08/23/20 08/23/20 21:51 21:51 WBC 5.5 RBC 4.16 L Hgb 12.1 L Hct 37.8 L MCV 90.9 MCH 29.1 MCHC 32.0 RDW Std Deviation 44.6 H RDW Coeff of Gaby 13.4 Plt Count 204 MPV 9.1 Immature Gran % (Auto) 0.400 Neut % (Auto) 41.5 L Lymph % (Auto) 47.4 H Lassen % (Auto) 8.7 Eos % (Auto) 1.6 Baso % (Auto) 0.4 Absolute Neuts (auto) 2.3 Absolute Lymphs (auto) 2.61 Nucleated RBC % 0 Sodium 139 Potassium 3.9 Chloride 109 H Carbon Dioxide 26.0 Anion Gap 4 L BUN 24 H Creatinine 0.90 Estim Creat Clear Calc 89.81 Est GFR (MDRD) Af Amer 108 Est GFR (MDRD) Non-Af 89 BUN/Creatinine Ratio 26.5 H Glucose 102 Calcium 8.8 Troponin I < 0.015 Radiography Diagnostic Testing: X-ray interpreted by emergency doctor is unremarkable EKG Initial EKG: Comments: Sinus rhythm with a rate of 76. Normal GA and QTc interval. No ischemic changes seen. Does meet criteria for LVH. Interpreted by emergency doctor Discharge Plan Triage Chief Complaint: Chest Pain ED Provider: Dmitry Reza Dx/Rx/DC Orders Clinical Impression: Chest pain Prescriptions: No Action amlodipine-benazepril 1 EACH capsule 1 ea PO QHS RF: 0 mometasone 1 SPRAY spray,non-aerosol 1 spray NASAL BID RF: 0 omeprazole 20 MG capsule,delayed release(DR/EC) 20 mg PO BID RF: 0 pravastatin 20 MG tablet 20 mg PO QHS RF: 0 metoprolol succinate 25 MG tablet extended release 24 hr 25 mg PO QHS RF: 0 Primary Care Provider: [facility] Doctor,Out of Referrals: [facility] Doctor,Out of [Primary Care Provider] - Disposition Disposition: Acute Care Hospital [facility]
--- NOTE | 2020-08-23 22:03 | RAD_ITS ---
STUDY: X-RAY CHEST REASON FOR EXAM: Male, 64 years old. chest pain TECHNIQUE: Single AP portable view of the chest. COMPARISON: 06/18/2019 FINDINGS: The lungs are clear and expanded. There is no demonstrated pleural abnormality. Normal size heart. Normal mediastinum and beti. Normal visualized pulmonary arteries. Normal visualized aortic arch and descending thoracic aorta. Normal visualized thoracic spine. Normal visualized ribs, clavicles, and shoulders. There is no demonstrated abnormality of the visualized soft tissue structures of the upper abdomen. RAD/Chest 1 View (Portable) IMPRESSION: Normal x-ray examination of the chest. Electronically Signed: Bruce Salazar DO at 22:35 EDT Tel , Service support ,
[2020-08-23 22:06] VITALS: O2SAT 94
[2020-08-23 22:10] LABS: Absolute Lymphocyte Count 2.61 X10^3/uL (0.83-4.51); Absolute Neutrophil Count 2.3 X10^3/uL (2.0-7.7); Basophil# 0.02 X10^3/uL; Basophil% 0.4 % (0-1); Eosinophil# 0.09 X10^3/uL; Eosinophils% 1.6 % (0-5); Hematocrit 37.8 % (40-54); Hemoglobin 12.1 g/dL (13.0-16.5); Lymphocyte # 2.61 X10^3/ul (0.83-4.51); Lymphocyte % 47.4 % (19-41); Mean Corpuscular Hgb 29.1 pg (27.0-32.0); Mean Corpuscular Volume 90.9 fL (80-94); Mean Platelet Vol. 9.1 fl (6.2-12.0); Monocyte# 0.48 X10^3/uL; Monocyte% 8.7 % (0-10); NRBC Flagged by Analyzer 0 % (0-5); Neutrophil # 2.29 X10^3/uL (2.7-7.7); Neutrophil % 41.5 % (47-70); Platelet Count 204 K/mm3 (150-450); RBC Distribution Width CV 13.4 % (11.6-14.6); RBC Distribution Width SD 44.6 fl (35.1-43.9); Red Blood Count 4.16 M/mm3 (4.6-6.2); White Blood Count 5.5 K/mm3 (4.4-11.0)
[2020-08-23 22:19] LABS: Anion Gap 4 (5-15); BUN 24 mg/dL (7-18); BUN/Creat Ratio 26.5 RATIO (10-20); Calcium,Total 8.8 mg/dL (8.5-10.1); Chloride 109 mmol/L (98-107); EST Glomerular Filtration Rate 89 mL/min (>60); Est Glom Filt Rate - Afr Amer 108 mL/min (>60); Estimated Creatinine Clearance 89.81 ml/min; Glucose 102 mg/dL (74-106); Potassium 3.9 mmol/L (3.5-5.1); Sodium Level 139 mmol/L (136-145)
[2020-08-23] MEDS: Aspirin 81 MG TAB.CHEW 324 MG PO (22:23)
[2020-08-23 22:33] VITALS: BP 154/89; PULSE 66; RESP 19; O2SAT 94
--- NOTE | 2020-08-23 23:33 | HP.PCM_ITS ---
HPI - General General Date of Admission: 08/23/20 HPI Narrative CONNIE MORGAN, is a 64 M who presents with chest pain. Patient states he was sitting at home watching TV when he began to have a dull aching chest pain on the left side of his chest and numbness that radiated to his left arm and up his jaw. Patient states that the pain was a 6 out of 10 and uncomfortable. Patient has a medical history of hyperlipidemia and hypertension. Patient states he has never had a heart cath and has had one stress test in the past although he does not remember when. Patient states that currently the pain has resolved. Patient was given aspirin 324 mg x1 in ER. [facility] Medical History Abdominal aortic aneurysm Allergies Arthritis Bone fracture Chest pain Degenerative disc disease, cervical DJD (degenerative joint disease) of cervical spine Gastrointestinal problem GERD (gastroesophageal reflux disease) Hiatal hernia High blood pressure High cholesterol History of back problems Hives Kidney stones Left rotator cuff tear arthropathy Migraines Neurogenic bladder Osteoporosis Retained foreign body of hand Right rotator cuff tear arthropathy Sliding hiatal hernia Trigeminal neuralgia of left side of face UTI (urinary tract infection) Vision loss of left eye Vision loss of right eye Home Medications amlodipine-benazepril 1 ea PO QHS 05/16/18 [History Last Taken 05/05/19 22:00] omeprazole 20 mg PO BID 05/16/18 [History Last Taken 05/05/19 22:00] pravastatin 20 mg PO QHS 05/16/18 [History Last Taken Unknown] metoprolol succinate 25 mg PO QHS 05/01/19 [History Last Taken 05/05/19 22:00] acetaminophen 08/23/20 [History Last Taken Unknown] acetaminophen [Tylenol Arthritis] 650 mg PO Q12H PRN 08/23/20 [History Last Taken Unknown] naproxen sodium 220 mg PO BID PRN 08/23/20 [History Last Taken Unknown] triamcinolone acetonide [Nasacort] 1 spray INTRANASAL BID 08/23/20 [History Last Taken Unknown] Allergy/AdvReac Type Severity Reaction Status Date / Time corn Allergy Swelling Verified 06/18/19 05:43 Penicillins Allergy Swelling Verified 06/18/19 05:43 Family History Father Angina at rest Heart disease Hypertension High cholesterol Mother Arthritis Heart disease Hypertension Brother Diabetes Surgical History Deviated nasal septum History of appendectomy History of broken finger History of repair of right rotator cuff History of retained foreign body fully removed S/P left rotator cuff repair Social History Smoking Status: Never smoker alcohol intake: never substance use type: does not use additional social history: DOES NOT USE ASPIRIN DOES USE IBUPROFEN NEEDED ROS Constitutional Constitutional: Denies anorexia, chills or fatigue Cardiovascular Cardiovascular: Reports chest pain at rest and radiating jaw, neck or arm pain; Denies edema or palpitations Respiratory/Chest Respiratory/Chest: Denies cough, shortness of breath at rest or shortness of breath with exertion Gastrointestinal Gastrointestinal: Denies abdominal pain, constipation, diarrhea, nausea or vomiting Genitourinary Genitourinary: Denies dysuria Musculoskeletal Musculoskeletal: Denies back pain, extremity pain or joint pain Integumentary Integumentary: Denies dry skin Neurologic Neurologic: Denies abnormal gait, abnormal speech, confusion or dizziness Psychiatric Psychiatric: Denies anxiety or depression Endocrine Endocrinology: Denies change in body appearance Hematologic/Lymphatic Hematologic/Lymphatic: Denies easy bleeding or easy bruising Vital Signs Vital Signs Vital Signs: 08/23/20 21:31 08/23/20 22:06 08/23/20 22:33 Temperature 97.5 F L Temperature Source Temporal Pulse Rate 75 66 Respiratory Rate 18 19 H Blood Pressure 137/84 H 154/89 H Blood Pressure Mean 101 110 Pulse Ox 98 94 94 Oxygen Delivery Method Room Air Room Air Room Air Weight Weight: 203 lb 11.314 oz Body Mass Index (BMI) 27.6 Physical Exam Const alert and oriented x3 General Appearance: cooperative HEENT normocephalic and head/scalp atraumatic Eyes PERRL Neck supple, no JVD and thyroid normal General: trachea midline Lymph Lymphatic: no lymphadenopathy noted Resp normal respiratory effort, normal air movement and clear to auscultation bilaterally Cardio regular rate, regular rhythm, S1 normal heart sound and S2 normal heart sound GI normal to inspection, nondistended, normoactive bowel sounds, soft to palpation and non-tender Extremity normal capillary refill and no clubbing, cyanosis or edema General Extremity: no tenderness to palpation of joints or extremities Skin General Skin Exam: no breakdown and turgor normal Lesions: no lesions Rashes: no rashes Neuro CN's II-XII intact bilaterally and deep tendon reflexes 2+ bilaterally Psych thought process normal, cooperative and affect normal Appearance: appropriate Lab / Micro Data Result Diagrams: 08/23/20 21:51 08/23/20 21:51 Labs: Laboratory Results - last 24 hr 08/23/20 08/23/20 21:51 21:51 WBC 5.5 RBC 4.16 L Hgb 12.1 L Hct 37.8 L MCV 90.9 MCH 29.1 MCHC 32.0 RDW Std Deviation 44.6 H RDW Coeff of Gaby 13.4 Plt Count 204 MPV 9.1 Immature Gran % (Auto) 0.400 Neut % (Auto) 41.5 L Lymph % (Auto) 47.4 H Weber % (Auto) 8.7 Eos % (Auto) 1.6 Baso % (Auto) 0.4 Absolute Neuts (auto) 2.3 Absolute Lymphs (auto) 2.61 Nucleated RBC % 0 Sodium 139 Potassium 3.9 Chloride 109 H Carbon Dioxide 26.0 Anion Gap 4 L BUN 24 H Creatinine 0.90 Estim Creat Clear Calc 89.81 Est GFR (MDRD) Af Amer 108 Est GFR (MDRD) Non-Af 89 BUN/Creatinine Ratio 26.5 H Glucose 102 Calcium 8.8 Troponin I < 0.015 Radiology Impression Chest X-Ray 08/23/20 22:03 IMPRESSION: Normal x-ray examination of the chest. Electronically Signed: Bruce Salazar DO at 22:35 EDT Tel , Service support , Assessment & Plan Assessment/Plan (1) Chest pain: QUALIFIERS: Chest pain type: unspecified Qualified Code(s): R07.9 - Chest pain, unspecified PLAN: 1. Chest pain -Admit to PCU for continuous cardiac monitoring -Stress test ordered for a.m. -Trend cardiac enzymes, initial troponin negative -CBC and BMP in a.m. -O2 per protocol -N.p.o. at midnight 2. Hypertension -Continue metoprolol, amlodipine, benazepril. -Vital signs per protocol, trend BP and heart rate 3. Hyperlipidemia -Continue pravastatin DVT prophylaxis-not indicated, observation status This patient was seen by CHYNA Cross under the supervision of Dr. Krishna.
--- NOTE | 2020-08-23 23:59 | EKG12_ITS ---
Test Reason : CP ADMIT Blood Pressure : / mmHG Vent. Rate : 060 BPM Atrial Rate : 060 BPM P-R Int : 172 ms QRS Dur : 098 ms QT Int : 404 ms P-R-T Axes : 051 -10 005 degrees QTc Int : 404 ms Normal sinus rhythm Normal ECG Confirmed by ELMO HOOPER, STEPHANIE ([id number]), medical transcription editor EDWARDO TOTH ([id number]) on 08/25/2020 9:49:00 AM Referred By: DR JACOBS Confirmed By:STEPHANIE BORREGO MD
[2020-08-24] VITALS (8 sets, daily range): BP systolic 125–145; BP diastolic 73–85; PULSE 59–85; RESP 16–18; TEMP 36.2–37; O2SAT 96; BMI 26.5
[2020-08-24 05:06] LABS: Absolute Neutrophil Count 1.6 X10^3/uL (2.0-7.7); Basophil# 0.03 X10^3/uL; Basophil% 0.6 % (0-1); Eosinophil# 0.13 X10^3/uL; Eosinophils% 2.8 % (0-5); Hematocrit 35.6 % (40-54); Hemoglobin 11.6 g/dL (13.0-16.5); Lymphocyte % 53.1 % (19-41); Mean Corp Hgb Conc 32.6 g/dL (32-36); Mean Corpuscular Hgb 29.1 pg (27.0-32.0); Mean Corpuscular Volume 89.2 fL (80-94); Mean Platelet Vol. 8.8 fl (6.2-12.0); Monocyte# 0.41 X10^3/uL; Monocyte% 8.7 % (0-10); NRBC Flagged by Analyzer 0 % (0-5); Neutrophil # 1.63 X10^3/uL (2.7-7.7); Neutrophil % 34.6 % (47-70); Platelet Count 175 K/mm3 (150-450); RBC Distribution Width CV 13.3 % (11.6-14.6); RBC Distribution Width SD 43.7 fl (35.1-43.9); Red Blood Count 3.99 M/mm3 (4.6-6.2); White Blood Count 4.7 K/mm3 (4.4-11.0)
[2020-08-24 05:25] LABS: Anion Gap 4 (5-15); BUN 18 mg/dL (7-18); BUN/Creat Ratio 24.7 RATIO (10-20); Calcium,Total 8.2 mg/dL (8.5-10.1); Chloride 111 mmol/L (98-107); Creatinine, Serum 0.73 mg/dL (0.70-1.30); EST Glomerular Filtration Rate 115 mL/min (>60); Est Glom Filt Rate - Afr Amer 139 mL/min (>60); Estimated Creatinine Clearance 114.01 ml/min; Glucose 90 mg/dL (74-106); Sodium Level 142 mmol/L (136-145)
[2020-08-24] MEDS: 0.9% Saline Lock 10 ML Syringe IV (06:21)
[2020-08-24] MEDS: Fluticasone 0.05% 1 SPRAY NASAL.SRY 2 SPRAY NASAL (10:43)
[2020-08-24] MEDS: Pantoprazole Sodium 20 MG Tablet PO (10:43)
--- NOTE | 2020-08-24 11:48 | PCM.DC ---
Discharge Instructions Diet Discharge Diet: Low fat / Low cholesterol Activity Discharge Activity: Return to Normal Activity Dressing / Incision Call your doctor if you observe: Shortness of breath, Dizziness and Chest pain Follow Up Care Test Results: Test results from this visit will be discussed in further detail at your follow-up appointment, if applicable. Discharge Plan Admission Admit Date/Time: 08/23/20 23:32 Primary Reason for Your Visit: Chest pain Attending Provider: Nawaf Parmar Discharge Orders/Prescriptions Prescriptions: Continued amlodipine-benazepril 1 EACH capsule 1 ea PO QHS RF: 0 omeprazole 20 MG capsule,delayed release(DR/EC) 20 mg PO BID RF: 0 pravastatin 20 MG tablet 20 mg PO QHS RF: 0 metoprolol succinate 25 MG tablet extended release 24 hr 25 mg PO QHS RF: 0 acetaminophen 650 mg Tablet Extended Release 650 mg PO Q12H PRN (Reason: Pain) RF: 0 triamcinolone acetonide [Nasacort] 55 mcg Aerosol,Carman 1 spray INTRANASAL BID RF: 0 naproxen sodium 220 mg Capsule 220 mg PO BID PRN (Reason: Pain) RF: 0 acetaminophen RF: 0 Referrals / Follow Up: ES BERNSTEIN [Preeti] [facility] Doctor,Out of [NON-STAFF] - In 1 Week (PCP) Disposition Disposition (needs filled in before D/C Order can be placed): Home, self care
--- NOTE | 2020-08-24 12:09 | STRESSREP ---
Stress Test Report Date: 08-24-2020 Procedure: Exercise tolerance test/imaging study Indications: Chest pain Consent: Per the patient Procedure: The patient exercised on a Terry protocol for 7 minutes and 30 seconds completing Stage II and 1 minute and 30 seconds of Stage III achieving a peak heart rate of 150 bpm (96% predicted maximal heart rate) with a peak blood pressure 168/78 mmHg and a peak MET capacity of 9 METs. The baseline ECG demonstrated normal sinus rhythm. The peak exercise ECG demonstrated no obvious ECG changes. [There were no cardiac dysrhythmias pretest, during exercise, or recovery]. The functional capacity was considered good. There was tingling in the left face/left arm with spontaneous resolution in recovery. The examination was discontinued secondary to dyspnea. Impression: 1. Technically adequate (percent predicted maximal heart rate greater than 85%) exercise tolerance test 2. Peak exercise ECG with no obvious ECG changes 3. There were no cardiac dysrhythmias pretest, during exercise, or recovery 4. Nuclear images pending Myocardial perfusion imaging study: Technique: The patient was injected with 15.0 mCi of technetium 99m Cardiolite and subsequently rest SPECT Cardiolite nuclear imaging was obtained in the horizontal long, vertical long, and short axis views. The patient exercised on a Terry protocol for 7 minutes and 30 seconds completing Stage II and 1 minute and 30 seconds of Stage III achieving a peak heart rate of 150 bpm (96% predicted maximal heart rate) with a peak blood pressure 168/78 mmHg and a peak MET capacity of 9 METs. The patient was injected with 44.4 mCi of technetium 99m Cardiolite and subsequently stress SPECT Cardiolite nuclear imaging was obtained in the horizontal long, vertical long, and short axis views. A gated Cardiolite study at peak stress was obtained. Interpretation: Rest and stress SPECT Cardiolite nuclear imaging status post realignment, normalization, and attenuation correction, demonstrates the appearance of relative uniform tracer uptake and myocardial perfusion appearing within normal limits. There is end systolic thickening and brightening. The gated Cardiolite study demonstrates myocardial thickening and inward wall motion. The reported LVEF is 67%. Impression: 1. Rest and stress SPECT Cardiolite nuclear imaging demonstrate relative uniform tracer uptake and myocardial perfusion appearing within normal limits. 2. The gated Cardiolite study reports an LVEF of 67%. This note was generated with [employer] software. It may contain incorrect words, spelling, and punctuation that were not noted in checking the note before signing.
--- NOTE | 2020-08-24 13:08 | DS.PCM_ITS ---
Documented by User: Sarah Grewal NP, [employer]-C 08/24/20 13:13 Providers Date of Admission: 08/23/20 Date of Discharge: 08/24/20 Primary Care Physician: ES BERNSTEIN Reason For Visit: CHEST PAIN Diagnosis Discharge Diagnosis (1) Chest pain: Status: Acute Code(s): R07.9 - Chest pain, unspecified Qualifiers: Chest pain type: unspecified Qualified Code(s): R07.9 - Chest pain, unspecified Medications at Discharge Home Medications amlodipine-benazepril 1 ea PO QHS 05/16/18 omeprazole 20 mg PO BID 05/16/18 pravastatin 20 mg PO QHS 05/16/18 metoprolol succinate 25 mg PO QHS 05/01/19 acetaminophen 08/23/20 acetaminophen 650 mg PO Q12H PRN 08/23/20 naproxen sodium 220 mg PO BID PRN 08/23/20 triamcinolone acetonide [Nasacort] 1 spray INTRANASAL BID 08/23/20 Hospital Course Operations None Procedures Nuclear stress test Summary of Care Provided Minutes Spent on Discharge: 35 Hospital Course: Patient is a 64-year-old male admitted 08/23/2020 due to chest pain. Symptoms occurred while patient was at rest, watching TV on the couch. He described chest tightness radiating to his left arm and became diaphoretic and lightheaded. Troponin negative. EKG without ST-T changes. Patient underwent nuclear stress test which was negative for ischemia. ACS ruled out. Symptoms have resolved. Patient has a past medical history of hypertension, hyperlipidemia, GERD. Chronic medical conditions stable at this time. Follow- up with PCP in 1 week. Patient seen and examined prior to discharge. Physical assessment as noted below. Patient is stable for discharge with follow up recommendations as noted above. This patient was seen by CHYNA Suarez under the supervision of Dr. Parmar. Physical Exam Const alert, oriented x3 and no apparent distress Orientation / Consciousness: awake, oriented to person, oriented to place and oriented to time HEENT normocephalic and moist oral mucous membranes Eyes PERRL, EOMs intact bilaterally and conjunctivae normal Neck no lymphadenopathy Resp normal respiratory effort and clear to auscultation bilaterally Cardio regular rate, regular rhythm and no murmurs Peripheral Pulses: pulses 2+ throughout GI normal to inspection, nondistended, normoactive bowel sounds, non-tender and non-distended Extremity normal to inspection Skin no rashes or lesions noted Lesions: no lesions Rashes: no rashes Trauma: no lacerations or abrasions Neuro CN's II-XII intact bilaterally, no focal motor deficits, no sensory deficits noted and deep tendon reflexes 2+ bilaterally Psych mental status grossly normal and affect normal ABG / Lab / Microbiology Data Result Diagrams: 08/24/20 04:44 08/24/20 04:44 Laboratory: Laboratory Results - last 24 hr 08/23/20 08/23/20 08/24/20 21:51 21:51 00:33 WBC 5.5 RBC 4.16 L Hgb 12.1 L Hct 37.8 L MCV 90.9 MCH 29.1 MCHC 32.0 RDW Std Deviation 44.6 H RDW Coeff of Gaby 13.4 Plt Count 204 MPV 9.1 Immature Gran % (Auto) 0.400 Neut % (Auto) 41.5 L Lymph % (Auto) 47.4 H [place] % (Auto) 8.7 Eos % (Auto) 1.6 Baso % (Auto) 0.4 Absolute Neuts (auto) 2.3 Absolute Lymphs (auto) 2.61 Nucleated RBC % 0 Sodium 139 Potassium 3.9 Chloride 109 H Carbon Dioxide 26.0 Anion Gap 4 L BUN 24 H Creatinine 0.90 Estim Creat Clear Calc 89.81 Est GFR (MDRD) Af Amer 108 Est GFR (MDRD) Non-Af 89 BUN/Creatinine Ratio 26.5 H Glucose 102 Calcium 8.8 Troponin I < 0.015 < 0.015 08/24/20 08/24/20 08/24/20 04:44 04:44 04:44 WBC 4.7 RBC 3.99 L Hgb 11.6 L Hct 35.6 L MCV 89.2 MCH 29.1 MCHC 32.6 RDW Std Deviation 43.7 RDW Coeff of Gaby 13.3 Plt Count 175 MPV 8.8 Immature Gran % (Auto) 0.200 Neut % (Auto) 34.6 L Lymph % (Auto) 53.1 H [place] % (Auto) 8.7 Eos % (Auto) 2.8 Baso % (Auto) 0.6 Absolute Neuts (auto) 1.6 L Absolute Lymphs (auto) 2.50 Nucleated RBC % 0 Sodium 142 Potassium 4.0 Chloride 111 H Carbon Dioxide 27.0 Anion Gap 4 L BUN 18 Creatinine 0.73 Estim Creat Clear Calc 114.01 Est GFR (MDRD) Af Amer 139 Est GFR (MDRD) Non-Af 115 BUN/Creatinine Ratio 24.7 H Glucose 90 Calcium 8.2 L Troponin I < 0.015 Radiography Diagnostic Testing: Radiology Impression Chest X-Ray 08/23/20 22:03 IMPRESSION: Normal x-ray examination of the chest. Electronically Signed: Bruce Salazar DO at 22:35 EDT Tel , Service support , D/C Instructions Discharge Diet: Low fat / Low cholesterol Discharge Activity: Return to Normal Activity Call your doctor if you observe: Shortness of breath, Dizziness and Chest pain Meaningful Use Info Meaningful Use Diagnoses (Choose all that apply): None applicable Discharge Plan Admission Admit Date/Time: 08/23/20 23:32 Primary Reason for Your Visit: Chest pain Attending Provider: Nawaf Parmar Discharge Orders/Prescriptions Prescriptions: Continued amlodipine-benazepril 1 EACH capsule 1 ea PO QHS RF: 0 omeprazole 20 MG capsule,delayed release(DR/EC) 20 mg PO BID RF: 0 pravastatin 20 MG tablet 20 mg PO QHS RF: 0 metoprolol succinate 25 MG tablet extended release 24 hr 25 mg PO QHS RF: 0 acetaminophen 650 mg Tablet Extended Release 650 mg PO Q12H PRN (Reason: Pain) RF: 0 triamcinolone acetonide [Nasacort] 55 mcg Aerosol,[place] 1 spray INTRANASAL BID RF: 0 naproxen sodium 220 mg Capsule 220 mg PO BID PRN (Reason: Pain) RF: 0 acetaminophen RF: 0 Referrals / Follow Up: ES BERNSTEIN [[facility]] [facility] Doctor,Out of [NON-STAFF] - In 1 Week (PCP) Disposition Disposition (needs filled in before D/C Order can be placed): Home, self care Documented by User: Dr. Nawaf Parmar DO 08/24/20 14:04 Providers Date of Admission: 08/23/20 Reason For Visit: CHEST PAIN Medications at Discharge Home Medications amlodipine-benazepril 1 ea PO QHS 05/16/18 omeprazole 20 mg PO BID 05/16/18 pravastatin 20 mg PO QHS 05/16/18 metoprolol succinate 25 mg PO QHS 05/01/19 acetaminophen 08/23/20 acetaminophen 650 mg PO Q12H PRN 08/23/20 naproxen sodium 220 mg PO BID PRN 08/23/20 triamcinolone acetonide [Nasacort] 1 spray INTRANASAL BID 08/23/20 Hospital Course Operations None Procedures Stress test Summary of Care Provided Hospital Course: 64-year-old white male presents with chest pain. Chest pain was left-sided and developed paresthesias on his left arm and possibly on his left face. Troponins and a stress test were unremarkable. Patient will be discharged home in stable condition. Physical Exam Const alert and oriented x3 Neuro Sensorium / Orientation: awake and alert ABG / Lab / Microbiology Data Result Diagrams: 08/24/20 04:44 08/24/20 04:44 Discharge Plan Admission Admit Date/Time: 08/23/20 23:32 Primary Reason for Your Visit: Chest pain Attending Provider: Nawaf Parmar Discharge Orders/Prescriptions Prescriptions: Continued amlodipine-benazepril 1 EACH capsule 1 ea PO QHS RF: 0 omeprazole 20 MG capsule,delayed release(DR/EC) 20 mg PO BID RF: 0 pravastatin 20 MG tablet 20 mg PO QHS RF: 0 metoprolol succinate 25 MG tablet extended release 24 hr 25 mg PO QHS RF: 0 acetaminophen 650 mg Tablet Extended Release 650 mg PO Q12H PRN (Reason: Pain) RF: 0 triamcinolone acetonide [Nasacort] 55 mcg Aerosol,[place] 1 spray INTRANASAL BID RF: 0 naproxen sodium 220 mg Capsule 220 mg PO BID PRN (Reason: Pain) RF: 0 acetaminophen RF: 0 Referrals / Follow Up: ES BERNSTEIN [[facility]] [facility] Doctor,Out of [NON-STAFF] - In 1 Week (PCP) Disposition Disposition (needs filled in before D/C Order can be placed): Home, self care Visit Charges OBSV E&M: 15709 Observation care discharge
== END 2020-08-24 11:48 | disposition home or self-care (01) ==
LOC: ED 23:12 → PCU 23:34
PROVIDERS: Nurse Practitioner Family; Admitting Provider Family Medicine; Emergency Provider Emergency Medicine
DX: R07.89 Other chest pain (principal); I10 Essential (primary) hypertension; E78.5 Hyperlipidemia, unspecified; K21.9 Gastro-esophageal reflux disease without esophagitis; M50.30 Other cervical disc degeneration, unspecified cervical region; N31.9 Neuromuscular dysfunction of bladder, unspecified; Z79.899 Other long term (current) drug therapy; Z79.51 Long term (current) use of inhaled steroids; H54.3 Unqualified visual loss, both eyes; R20.2 Paresthesia of skin
CPT/HCPCS: 36415; 71045; 78452; 80048; 84484; 85025; 93005; 93017; 99218; 99282; A9500; A4216; G0378

== ENCOUNTER → 2021-03-15 10:01 | Outpatient (CLI) | payer MEDICARE, OTHER, SELFPAY ==
--- NOTE | 2021-03-15 10:11 | RAD_ITS ---
STUDY: X-RAY - LUMBAR SPINE REASON FOR EXAM: Male, 65 years old. Radiating low back pain TECHNIQUE: 3 view(s) of the lumbar spine were obtained. COMPARISON: None FINDINGS: Normal lumbar lordosis. There is no substantial scoliosis. There is a normal alignment of the vertebrae. There is multilevel endplate spondylosis of the lumbar vertebrae. Mild disc space narrowing throughout the lumbar spine. There is no demonstrated fracture. The soft tissue structures are unremarkable. RAD/Lumbar Spine 2 or 3 Views IMPRESSION: Mild degenerative changes, no acute findings Electronically Signed: Augie Alexander MD at 11:14 EST , Service support ,
--- NOTE | 2021-03-15 10:11 | RAD_ITS ---
STUDY: X-RAY - CERVICAL SPINE REASON FOR EXAM: Male, 65 years old. CERVICAL DEGENERATION TECHNIQUE: 4 view(s) of the cervical spine were obtained. COMPARISON: None FINDINGS: Normal anterior atlantoaxial articulation. Normal odontoid process. There is straightening of the normal cervical lordosis. There is multi-level endplate spondylosis. There is multi-level degenerative disc disease with multilevel disc space narrowing. The soft tissue structures are unremarkable. RAD/Cerv Spine 2 or 3 Views IMPRESSION: Multilevel degenerative changes, no acute findings Electronically Signed: Augie Alexander MD at 11:29 EST , Service support ,
== END ==
PROVIDERS: Referring Provider Anesthesiology Pain Medicine; Visit Provider Anesthesiology Pain Medicine
DX: M50.30 Other cervical disc degeneration, unspecified cervical region (principal); M51.37 Other intervertebral disc degeneration, lumbosacral region
CPT/HCPCS: 72040; 72100

== ENCOUNTER → 2021-10-07 | Outpatient (CLI) | payer MEDICARE, OTHER, SELFPAY ==
--- NOTE | 2021-10-07 07:58 | ECHOD_ITS ---
Reason For Study: Chest Pain Procedure This was a 2D Doppler, Color Flow transthoracic echocardiogram. The study was technically difficult. Exam performed in department. Left Ventricle Normal LV size. Left ventricular systolic function is normal. The estimated ejection fraction is 60 %. No evidence for diastolic dysfunction. No regional wall motion abnormalities noted. Right Ventricle Normal RV size. Normal systolic function. Atria Normal left atrium. Normal right atrium. No doppler evidence for ASD. Mitral Valve There is no mitral annular calcification. Normal mitral valve. Trivial mitral valve insufficiency. Tricuspid Valve Normal tricuspid valve. Trivial tricuspid valve insufficiency. Right ventricular systolic pressure estimated to be 23 mmHg. Aortic Valve Trisinus/trileaflet aortic valve. Normal aortic valve. Mild (1+) aortic valve insufficiency. Pulmonic Valve The pulmonic valve is not well visualized. Trivial pulmonic valve insufficiency. Great Vessels Mildly dilated aortic root. Pericardium/Pleural No pericardial effusion. MMode/2D Measurements & Calculations LVIDd: 4.9 cm IVSd: 0.94 cm Ao root diam: 4.0 cm LVIDs: 3.1 cm LVPWd: 1.0 cm LA dimension: 3.6 cm RVDd: 3.5 cm FS: 36.4 % LAV(MOD-bp): 40.8 ml LA A4 area: 12.9 cm2 RA A4 area: 10.7 cm2 LAV(MOD-bp) Indexed: 19.6 ml/m2 LAV(MOD-sp2): 47.5 ml LAV(MOD-sp4): 31.1 ml Time Measurements MV dec time: 0.26 sec Doppler Measurements & Calculations MV E max quinton: 58.9 cm/sec Lat Peak E' [place]: 6.7 cm/sec Med Peak E' [place]: 4.4 cm/sec MV A max quinton: 79.6 cm/sec E/E' lat: 8.8 E/E' med: 13.4 MV E/A: 0.74 MV V2 max: 88.0 cm/sec MV P1/2t max qu[place]: 67.3 cm/sec Ao V2 max: 117.0 cm/sec MV max P.1 mmHg MV P1/2t: 70.6 msec Ao max P.5 mmHg MV V2 mean: 44.4 cm/sec MV dec slope: 279.1 cm/sec2 MV mean P.97 mmHg MVA(P1/2t): 3.1 cm2 MV V2 VTI: 23.1 cm AI max quinton: 428.7 cm/sec LV V1 max: 109.5 cm/sec PA V2 max: 83.8 cm/sec AI max P.6 mmHg LV V1 max P.8 mmHg AI dec slope: 186.6 cm/sec2 AI P1/2t: 673.0 msec TR max quinton: 221.7 cm/sec TR max P.7 mmHg ECHO/Echo Complete Interpretation Summary The study was technically difficult. Left ventricular systolic function is normal. The estimated ejection fraction is 60 %. Trivial mitral valve insufficiency. Trivial tricuspid valve insufficiency. Mild (1+) aortic valve insufficiency. Trivial pulmonic valve insufficiency. Mildly dilated aortic root. Right ventricular systolic pressure estimated to be 23 mmHg. No evidence for diastolic dysfunction. Ordering Physician: Dmitry Bonilla Referring Physician: Dmitry Bonilla Performed By: Israel De La Garza RCS
== END | disposition home or self-care (01) ==
LOC: CVS 07:57
PROVIDERS: Referring Provider Internal Medicine Cardiovascular Disease; Visit Provider Internal Medicine Cardiovascular Disease
DX: R07.9 Chest pain, unspecified (principal); E78.00 Pure hypercholesterolemia, unspecified; I10 Essential (primary) hypertension
CPT/HCPCS: 93306

== ENCOUNTER 2021-10-25 07:24 | Day surgery (SDC) | payer MEDICARE, OTHER, SELFPAY ==
--- NOTE | 2021-10-07 08:29 | RAD_ITS ---
STUDY: X-RAY CHEST REASON FOR EXAM: Male, 66 years old. 2 episodes of chest pain. TECHNIQUE: PA and lateral views of the chest. COMPARISON: Comparison is made with prior study dated 08/23/2020. FINDINGS: Hyperinflation. The lungs are clear. There is no demonstrated pleural abnormality. Normal size heart. Normal mediastinum and beti. Normal visualized pulmonary arteries. Normal visualized aortic arch and descending thoracic aorta. There are diffuse degenerative changes of the visualized thoracic spine. Normal visualized ribs, clavicles, and shoulders. There is no demonstrated abnormality of the visualized soft tissue structures of the upper abdomen. RAD/Chest PA and Lateral IMPRESSION: Hyperinflation. The lungs are clear. Electronically Signed: Chente Najera MD at 9:25 EDT ,
[2021-10-07 10:13] LABS: Absolute Lymphocyte Count 1.88 X10^3/uL (0.83-4.51); Absolute Neutrophil Count 3.3 X10^3/uL (2.0-7.7); Basophil# 0.06 X10^3/uL; Eosinophil# 0.16 X10^3/uL; Eosinophils% 2.7 % (0-5); Hematocrit 39.2 % (40-54); Hemoglobin 12.9 g/dL (13.0-16.5); Lymphocyte # 1.88 X10^3/ul (0.83-4.51); Lymphocyte % 31.5 % (19-41); Mean Corp Hgb Conc 32.9 g/dL (32-36); Mean Corpuscular Hgb 29.6 pg (27.0-32.0); Mean Corpuscular Volume 89.9 fL (80-94); Mean Platelet Vol. 8.8 fl (6.2-12.0); Monocyte# 0.54 X10^3/uL; Monocyte% 9.1 % (0-10); NRBC Flagged by Analyzer 0 % (0-5); Neutrophil # 3.29 X10^3/uL (2.7-7.7); Neutrophil % 55.2 % (47-70); Platelet Count 209 K/mm3 (150-450); RBC Distribution Width CV 14.3 % (11.6-14.6); RBC Distribution Width SD 46.2 fl (35.1-43.9); Red Blood Count 4.36 M/mm3 (4.6-6.2)
[2021-10-07 10:21] LABS: Partial Thromboplast Time 25.8 Seconds (24.1-36.2); Prothrombin Time (Protime)PT. 12.6 SECONDS (11.7-14.9)
[2021-10-07 10:40] LABS: Anion Gap 3 (5-15); BUN 21 mg/dL (7-18); BUN/Creat Ratio 24.1 RATIO (10-20); Calcium,Total 9.2 mg/dL (8.5-10.1); Chloride 106 mmol/L (98-107); Creatinine, Serum 0.87 mg/dL (0.70-1.30); EST Glomerular Filtration Rate 93 mL/min (>60); Est Glom Filt Rate - Afr Amer 112 mL/min (>60); Glucose 82 mg/dL (74-106); Potassium 4.1 mmol/L (3.5-5.1); Sodium Level 140 mmol/L (136-145)
--- NOTE | 2021-10-21 16:46 | HP.PCM_ITS ---
History and Physical Date of Admission: 10/25/21 [facility] [address] [place] [address] OFFICE VISIT Date of Service:? 09/22/21 MR#: [id number] Acct: [id number] Name:CONNIE MAYERS Rep #: [id number] : 1955 ?Provider: Dr. Dmitry Bonilla MD Age/Sex:? 66/M Location: [facility] [place].[facility] Status: Signed HPI HPI History of Present Illness Surgical H&P: Yes Details: This is a 66-year-old white male who presents for outpatient cardiovascular consultation based upon the recurrent chest discomfort concerning for angina pectoris.? The patient states that he has had chest discomfort approximately a year ago.? He was evaluated at [facility] noninvasively.? At that time he underwent a stress nuclear imaging study.? The results are noted below.? He did not require invasive cardiovascular evaluation.? He states since that time, especially this past spring, he has had recurrent episodes of his chest discomfort.? He notes his chest discomfort occurs usually when he is resting as opposed to when he is exerting himself.? He will get a heavy pressure sensation over his left precordial area which radiates towards, as he points, to his left neck, left shoulder, and down his left upper extremity.? He does not notice any associated nausea or emesis or dyspnea.? He states he does become diaphoretic.? He notes these episodes last for several minutes.? They gradually ease up and go away. He has denied episodes of orthopnea or PND or peripheral pitting edema.? There has been no palpitations.? He denies near syncope or syncope. He states for these last episodes he chose not to present back to the hospital for further evaluation.? He did agree for continued outpatient cardiovascular evaluation. It appears that he underwent a transthoracic echocardiogram through the [facility] system on 11-16-2011.? At that time the left ventricle was normal with an LVEF of 55 to 60% with mild concentric LVH.? There was also a comment of mild AI and trace TR. It appears he also has undergone previous exercise tolerance test/imaging studies on 11-16-2011.? That report is unavailable for review. On 01-21-2015 he had a stress nuclear imaging study performed through the [facility] system.? At that time his nuclear imaging was considered negative and his left ventricular cavity size and systolic function were reported as normal.? His LVEF was reported at 67%.? There was a comment that that report was compared to the one from 2011 and continued to note no ischemia. He also has undergone evaluation with an abdominal ultrasound which was performed in 2019.? At that time it stated his proximal aorta measured up to 2.9 cm and prior examinations demonstrating normal caliber aorta.? A comment was made that the measurement reported may be artificially elevated.? He was r ecommended for a follow-up evaluation in 5 years. He had an ECG in the office today.? He was in sinus rhythm.? He had no acute ECG changes. He brought with him laboratory studies were performed on 09-06-2021.? At that time his total cholesterol was 172 with an LDL of 104 and an HDL of 43.? His triglycerides were 123.? He states traditionally his HDL levels are much lower than that. Intake Vital Signs ? 08/24/2099:05 09/22/2210:30 09/22/2210:37 Height 6 ft 1 in 6 ft 1 in 6 ft Weight: ? ? 192 lb 4 oz BMI ? ? 26.0 BP ? ? 138/88 H Blood Pressure Location ? ? Lt brachial Position ? ? Sitting Respiration ? ? 16 Pulse ? ? 76 Pulse Source ? ? Auscultation Intake Visit Reasons:?CP/SELF REF. Maintainer Plant Required: No Accompanied by: Allergies corn Allergy (Verified 09/22/21 11:38) SwellingPenicillins Allergy (Verified 09/22/21 11:38) Swelling Medications amlodipine 5 mg-benazepril 20 mg capsule 1 ea PO QHS 05/16/18 [History Confirmed 09/22/21] omeprazole 20 mg capsule,delayed release 20 mg PO BID reflux 05/16/18 [History Confirmed 09/22/21] pravastatin 20 mg tablet 20 mg PO QHS 05/16/18 [History Confirmed 09/22/21] metoprolol succinate 25 mg tablet,extended release 24 hr 25 mg PO QHS 05/01/19 [History Confirmed 09/22/21] triamcinolone acetonide 55 mcg nasal spray aerosol (Nasacort) 1 spray intranasal BID 08/23/20 [History Confirmed 09/22/21] acetaminophen 650 mg tablet,extended release 650 mg PO TID PRN Pain 09/22/21 [History Confirmed 09/22/21] aspirin 81 mg tablet,delayed release 81 mg PO DAILY #1 TAB 09/22/21 [Rx Confirmed 09/22/21] PFSH Medical History? Abdominal aortic aneurysm Allergies Arthritis Bone fracture Chest pain Chronic pain Coronary artery disease Degenerative disc disease, cervical DJD (degenerative joint disease) of cervical spine Essential hypertension Foreign body of right hand Gastrointestinal problem GERD (gastroesophageal reflux disease) Hiatal hernia History of back problems Hives Injury while performing home maintenance Kidney stones Left rotator cuff tear arthropathy Migraines Neurogenic bladder Non-smoker Osteoporosis Puncture wound of right hand with foreign body Pure hypercholesterolemia Retained foreign body of hand Right rotator cuff tear arthropathy Sliding hiatal hernia Trigeminal neuralgia of left side of face UTI (urinary tract infection) Vision loss of left eye Vision loss of right eye Surgical History? Deviated nasal septum History of appendectomy History of broken finger History of repair of right rotator cuff History of retained foreign body fully removed History of tonsillectomy S/P left rotator cuff repair Family History? Father Angina at rest Heart disease Hypertension High cholesterolMother Arthritis Heart disease HypertensionBrother Diabetes Social History? Smoking Status:? Never smoker alcohol intake:? never substance use type:? does not use caffeine:? Yes Type: coffee Number of servings: 2 additional social history:? DOES NOT USE ASPIRIN DOES USE IBUPROFEN NEEDED ROS Const Const: Negative for fatigue, weakness, body ache, fever(s), headache(s), chills, frequent falls, night sweats, daytime sleepiness, difficulty sleeping, excessive sweating, weight gain, weight loss, increased appetite, poor appetite, anorexia or other Eyes Eyes: Negative for blurry vision or double vision ENT ENT: Negative for headache(s), dizziness or balance problems Cardio Chest Pain: Yes Character: other (pressure) Onset: at rest Location: left chest (radiates up into neck and to Lt UE) Duration: minutes Relieving: rest Palpitations: No Edema: None Muscle aches with walking: None Resp Respiratory: Negative for SOB with activity, SOB at rest, SOB orthopnea\SOB lying down, Cough, Coughing up blood/hemoptysis, chest congestion, pain on inspiration, snoring, stridor, wheezing, crackles, paroxysmal nocturnal dyspnea or other Musc Musc: Positive for muscle aches/ myalgia (muscle cramps @ night bilat LE); Negative for muscle weakness, joint pain or balance problems Neuro Neuro: Negative for dizziness, lightheadedness, near syncope, syncope, orthostatic symptoms, frequent falls, headache(s), weakness, confusion, memory loss, restless legs, blurry vision, double vision, vertigo, seizures, lack of coordination or other Endo Endo: Negative for fatigue or excessive sweating Cardiology Exam Const Appearance: cooperative, healthy appearing, no acute distress, well developed and well groomed Nutritional Appearance: overweight Orientation: alert, awake and oriented x3 Head Head: normal to inspection, normocephalic and atraumatic Ears: hearing grossly normal bilaterally Nose: external nose normal Face and Sinus: face symmetric Eyes Eyelids: eyelids normal Conjunctivae: conjunctivae normal Pupils: PERRL EOM: EOM intact bilaterally Neck Neck: normal visual inspection and full ROM Carotids: normal carotid upstroke Chest Chest inspection: normal inspection of the chest Auscultation: Bilateral: Clear to Auscultation Cardio Palpation: normal PMI Rate: regular rate Rhythm: regular rhythm Heart sounds: S1 normal and S2 normal GI GI: normal to inspection, soft and bowel sounds present Neuro General: patient alert, patient awake, patient oriented x3 and moves all extremities Skin Skin: no rashes or lesions noted Extremities Pulses: Normal: Right Dorsalis Pedis Pulse, Left Dorsalis Pedis Pulse, Right Posterior Tibial Pulse, Left Posterior Tibial Pulse, Right Radial Pulse and Left Radial Pulse Lower Extremity Edema: None: Bilateral Psych Psychological: normal affect Supplemental Info Supplemental Information Stress Test Report Date: 08-24-2020 Procedure: Exercise tolerance test/imaging study Indications: Chest pain Consent: Per the patient Procedure: The patient exercised on a Terry protocol for 7 minutes and 30 seconds completing Stage II and 1 minute and 30 seconds of Stage III achieving a peak heart rate of 150 bpm (96% predicted maximal heart rate) with a peak blood pressure 168/78 mmHg and a peak MET capacity of 9 METs. The baseline ECG demonstrated normal sinus rhythm.? The peak exercise ECG demonstrated no obvious ECG changes. [There were no cardiac dysrhythmias pretest, during exercise, or recovery].? The functional capacity was considered good. There was tingling in the left face/left arm with spontaneous resolution in recovery. The examination was discontinued secondary to dyspnea. Impression: 1.? Technically adequate (percent predicted maximal heart rate greater than 85%) exercise tolerance test 2.? Peak exercise ECG with no obvious ECG changes 3.? There were no cardiac dysrhythmias pretest, during exercise, or recovery 4.? Nuclear images pending Myocardial perfusion imaging study: Technique: The patient was injected with 15.0 mCi of technetium 99m Cardiolite and subsequently rest SPECT Cardiolite nuclear imaging was obtained in the horizontal long, vertical long, and short axis views. The patient exercised on a Terry protocol for 7 minutes and 30 seconds completing Stage II and 1 minute and 30 seconds of Stage III achieving a peak heart rate of 150 bpm (96% predicted maximal heart rate) with a peak blood pressure 168/78 mmHg and a peak MET capacity of 9 METs. The patient was injected with 44.4 mCi of technetium 99m Cardiolite and subsequently stress SPECT Cardiolite nuclear imaging was obtained in the horizontal long, vertical long, and short axis views.? A gated Cardiolite study at peak stress was obtained. Interpretation: Rest and stress SPECT Cardiolite nuclear imaging status post realignment, normalization, and attenuation correction, demonstrates the appearance of relative uniform tracer uptake and myocardial perfusion appearing within normal limits.? There is end systolic thickening and brightening.? The gated Cardiolite study demonstrates myocardial thickening and inward wall motion.? The reported LVEF is 67%. Impression: 1.? Rest and stress SPECT Cardiolite nuclear imaging demonstrate relative uniform tracer uptake and myocardial perfusion appearing within normal limits. 2.? The gated Cardiolite study reports an LVEF of 67%. Labs: ?? ? No Data to Display Diagnostics: ?? ? Electrocardiogram ? Stress Test NM ? Stress Test ? Chest X-Ray ? Pulmonary: ?? ? No Data to Display Assessment and Plan Assessment and Plan (1) Chest pain: ?Status:?Acute ?Qualifiers: ?Chest pain type:?unspecified? Qualified Code(s):?R07.9 - Chest pain, unspecified ?Plan: He does have cardiovascular risk factors. He does have symptoms concerning for angina pectoris. His previous noninvasive studies have been negative for ongoing myocardial ischemia. He states based upon his cardiovascular risk factors and his recurrent symptoms he is very concerned as to whether or not he is following in his father's footsteps with respect to having CAD, DC, etc. and would like to proceed with further definitive evaluation of his cardiac status/coronary anatomy. This would include proceeding with a diagnostic cardiac catheterization as opposed to repeating another noninvasive study. The cardiac catheterization procedure was discussed with him.? The procedure and risk were discussed.? He was agreeable to this approach. As part of his noninvasive valuation he will also have a transthoracic echocardiogram performed to further assess his left ventricular wall motion and systolic function. Depending upon the findings he may or may not need additional cardiac diagnostic studies/therapy. If his studies are unremarkable then he may need to be considered for further noncardiac evaluation of his chest discomfort. (2) Pure hypercholesterolemia: ?Status:?Acute ?Plan: He will continue risk factor modification and medical management. (3) Essential hypertension: ?Status:?Acute ?Plan: He will continue his antihypertensive therapy. ? ? ? Orders: Orders 12 Lead EKG performed by [facility] Today E78.0 0 - Pure hypercholesterolemia, unspecified, I10 - Essential (primary) hypertension, R07.9 - Chest pain, unspecified ? Left Heart Cath/COR/LV Percut Today E78.00 - Pure hypercholesterolemia, unspecif ied, I10 - Essential (primary) hypertension, R07.9 - Chest pain, unspecified ? Echo Complete Today E78.00 - Pure hypercholesterolemia, unspecified, I10 - Essential (primary) hypertension, R07.9 - Chest pain, unspecified ? Basic Metabolic Profile (BMP) Today E78.00 - Pure hypercholesterolemia, unspecified, I10 - Essential (primary) hypertension, R07.9 - Chest pain, unspecified ? Partial Thromboplast Time Today E78.00 - Pure hypercholesterolemia, unspecified, I10 - Essential (primary) hypertension, R07.9 - Chest pain, unspecified ? Prothrombin Time w/INR Today E78.00 - Pure hypercholesterolemia, unspecified, I10 - Essential (primary) hypertension, R07.9 - Chest pain, unspecified ? CBC W/Diff, Automated Today E78.00 - Pure hypercholesterolemia, unspecified, I10 - Essential (primary) hypertension, R07.9 - Chest pain, unspecified ? Chest PA and Lateral Today E78.00 - Pure hypercholesterolemia, unspecified, I10 - Essential (primary) hypertension, R07.9 - Chest pain, unspecified ? Medications: New aspirin 81 mg? PO DAILY 1 TAB 0RF ? ? Plan Details Additional Comments: He will initiate medical therapy with aspirin 81 mg p.o. daily in the interim. Again above was discussed with the patient with his present.? They were both agreeable to this approach. Thank you for allowing me to participate in the care of your patient.? Please don't hesitate to call if any issues arise. This note was generated using a voice recognition system and there may be incorrect words, spelling or punctuation that were not noted when reviewing the office note prior to saving. Follow Up: ? ? 3 Months (PFM ) COVID (Procedure Consent) Procedure Criteria Procedure Criteria: Yes Elective The surgeon/proceduralist and patient have discussed in detail the risk of exposure to and/or potential harm posed by the COVID-19 virus with having a surgery/procedure at this time versus the risk of? delaying the surgery/procedure. It is not possible to know either the risk of delaying the surgery or procedure or chance of getting an infection with perfect accuracy, but a joint decision was made between the patient and the surgeon/proceduralist ?to proceed at this time with the scheduled surgery/procedure as indicated on the consent form. Coding Level of Care Code Off vis,new,level 5 Diagnoses Chest pain? R07.9 ? ? ? Chest pain type: unspecified Pure hypercholesterolemia? E78.00 Essential hypertension? I10 Coding Level of Care Code Off vis,new,level 5 Diagnoses Chest pain? R07.9 ? ? ? Chest pain type: unspecified Pure hypercholesterolemia? E78.00 Essential hypertension? I10 09/22/21 1246 <Electronically signed by Dmitry Bonilla MD> Date Dmitry Bonilla MD Cosigner Signature: Date (if applicable) CC:? OUT OF TOWN DOCTOR ~ Assessment & Plan Assessment/Plan (1) Chest pain: QUALIFIERS: Chest pain type: unspecified Qualified Code(s): R07.9 - Chest pain, unspecified PLAN: Plan Addendum: The patient has subsequently undergone additional evaluation with a transthoracic echocardiogram on 10-07-2021. The results are noted below. Interpretation Summary The study was technically difficult. ? Left ventricular systolic function is normal. The estimated ejection fraction is 60 %. Trivial mitral valve insufficiency. Trivial tricuspid valve insufficiency. Mild (1+) aortic valve insufficiency. Trivial pulmonic valve insufficiency. Mildly dilated aortic root. Right ventricular systolic pressure estimated to be 23 mmHg. No evidence for diastolic dysfunction. The cardiac catheterization procedure was once again discussed with the patient. The risk and benefits were discussed. The patient grants consent. I have re-examined the patient. There are no clinical changes since date of exam
[2021-10-24 15:21] VITALS: BMI 26.0
--- NOTE | 2021-10-25 10:21 | CL.D_ITS ---
Patient Name: CONNIE MORGAN Study Date: 10/25/2021 Performing: Dmitry Bonilla MD Ht: 72.04 inches 183 cm : 1955 Wt: 191.8 lbs 87 kg Age: 66 Gender: male BSA: 2.09 PROCEDURE(S) PERFORMED [id number])C/[facility] CLINICAL PROFILE AND INDICATIONS Indications: Worsening Angina Heart Failure: None Stress/Imaging Date: 08/24/2020tress Test with SPECT MPI: Negative Angina Classification Anginal Classification w/in 2 Weeks: CCS IV CAD Presentations: Other: worsening angina CONCLUSIONS Elevated Left Ventricular End Diastolic Pressure Single vessel CAD of the LAD: mild luminal irregularities (non obstructive) RECOMMENDATIONS Risk factor modification Medical therapy DESCRIPTION OF PROCEDURE The patient arrived to the procedure lab. The risks and benefits of the procedure as well as a full d escription of our services here and current unavailability of surgical backup were fully explained to the patient and/or their significant other prior to the catheterization. The Timeout was completed, verifying the correct patient and procedure. The patient's procedural site was prepped and draped in the usual fashion. Local anesthetic was given subcutaneously to right radial region with Lidocaine 2% . Using a modified Seldinger technique, arterial access was obtained via the right radial artery, a 6 Fr sheath was inserted. Right Coronary Artery selective angiography was then performed in multiple v iews using a 5 Fr. JR 4 catheter. Right Coronary Artery selective angiography was then performed in m ultiple views using a 5 Fr. JR 4 catheter. LV to AO pullback pressures were then recorded. Left Coron pasha Artery selective angiography was performed in multiple views using a 6 Fr. JL4 catheter.The arterial sheath was pulled and a TR Band was applied for hemostasis.14cc air inserted. CORONARY ANGIOGRAPHY DOMINANCE: Right Dominant LEFT HEART ASSESSMENT Left Ventricular Ejection Fraction: by Echo 60 % Elevated Left Ventricular End Diastolic Pressure LVEDP: 22 mmHg LEFT MAIN: Large: Long Vessel: Angiographically normal LEFT ANTERIOR DESCENDING ARTERY: MID LAD: Mild luminal irregularities CIRCUMFLEX ARTERY: Angiographically normal RIGHT CORONARY ARTERY: Angiographically normal COMPLICATIONS No Complications PROCEDURE MEDICATIONS Fentanyl 50 mcg IV Versed 1 mg IV Fentanyl 50 mcg IV Versed 1 mg IV Oxygen: 2 L/min via nasal cannula Heparin given IA 10/25/2021 09:12:53 Nitro 100 mcg IA 10/25/2021 09:59:56 Verapamil 2.5mg, Ntg 100mcgs, 3000 units of Heparin given IA 10/25/2021 09:12:53 SUMMARY OF HEMODYNAMIC DATA Time AIR REST ECG 07:45:16 AO 119/85 (104) SA 09:15:25 LV 138/2, 20 09:34:06 LV 141/3, 09:34:11 LVp 141/4, 09:34:18 AOp 141/76 (103) 09:34:24 Signed By Dmitry Bonilla MD On 10/25/2021 10:20:20 Dmitry Bonilla MD
== END 2021-10-25 12:10 | disposition home or self-care (01) ==
PROVIDERS: Referring Provider Internal Medicine Cardiovascular Disease; Visit Provider Internal Medicine Cardiovascular Disease
DX: I25.118 Atherosclerotic heart disease of native coronary artery with other forms of angina pectoris (principal); I10 Essential (primary) hypertension; E78.00 Pure hypercholesterolemia, unspecified; M50.30 Other cervical disc degeneration, unspecified cervical region; K21.9 Gastro-esophageal reflux disease without esophagitis; R07.9 Chest pain, unspecified; Z79.82 Long term (current) use of aspirin; Z79.899 Other long term (current) drug therapy
CPT/HCPCS: 36415; 71046; 80048; 85025; 85610; 85730; 93005; 93306; 93454; 99152; 99153; J7040; Q9967; C1769; C1894

== ENCOUNTER → 2022-05-04 | Outpatient (CLI) | payer MEDICARE, OTHER, SELFPAY ==
--- NOTE | 2022-05-04 07:50 | CT_ITS ---
INDICATION: SINUSITIS EXAMINATION: CT SINUSES - CT Sinuses W/O Contrast Injection TECHNIQUE: Helically acquired images were obtained of the paranasal sinuses. A radiation dose optimization technique was used for this scan. IV Contrast dosage and agent: COMPARISON: None. FINDINGS: FRONTAL SINUSES AND RECESSES: Clear. ETHMOID AIR CELLS: Clear. MAXILLARY SINUSES: Clear. OSTIOMEATAL COMPLEXES: Clear and normally formed. SPHENOID SINUSES: Clear. SPHENOETHMOIDAL RECESSES: Clear. ANCILLARY FINDINGS: NASAL TURBINATES: Unremarkable. NASAL SEPTUM: Midline. ORBITS: Unremarkable. VISUALIZED DENTITION: No periodontal osseous erosion. ANTERIOR CRANIAL FOSSA: Unremarkable. CT/Sinus/Facial Bone IMPRESSION: Negative CT of the sinuses. Electronically Signed: Trevon Poole MD at 12:34 EST ,
== END | disposition home or self-care (01) ==
LOC: CT 07:49
PROVIDERS: Visit Provider Otolaryngology Otolaryngology/Facial Plastic Surgery
DX: J32.8 Other chronic sinusitis (principal)
CPT/HCPCS: 70486

== ENCOUNTER 2023-03-02 22:59 | Emergency (ER) | payer MEDICARE, OTHER, SELFPAY ==
[2023-03-02 23:02] VITALS: BP 151/92; PULSE 106; RESP 18; TEMP 36.1; O2SAT 99; BMI 24.5
[2023-03-02 23:04] VITALS: BP 151/92; PULSE 106; RESP 16; TEMP 36.1; O2SAT 99
--- NOTE | 2023-03-02 23:16 | EKG12_ITS ---
Test Reason : DYSRHYTHMIA Blood Pressure : / mmHG Vent. Rate : 088 BPM Atrial Rate : 088 BPM P-R Int : 166 ms QRS Dur : 096 ms QT Int : 358 ms P-R-T Axes : 049 -25 015 degrees QTc Int : 433 ms Sinus rhythm with frequent Premature ventricular complexes Minimal voltage criteria for LVH, may be normal variant ( R in aVL ) Borderline ECG Confirmed by MIRNA HOOPER, PRETTY ([id number]), industrial editor NAILA MEZA ([id number]) on 03/05/2023 10:43:21 AM Referred By: XI Confirmed By:PRETTY BRADLEY MD
--- NOTE | 2023-03-02 23:16 | EDS_ITS ---
HPI History of Present Illness Chief Complaint: Palpitations Informant: patient and spouse/S.O. Narrative Narrative: Patient laid down to sleep within the last hour or 2 and was feeling intermittent skipping palpitations. No chest pain, dyspnea, lightheadedness or syncope. No nausea or vomiting. No recent illness. No history of leg pain or swelling or DVT or PE in the past. He does not have a history of heart problems. He states he was having chest pain at 1 point and then he followed up with a operations administrator here locally who did a heart cath 1 or 2 years ago, and told him it was normal. He takes metoprolol and amlodipine?benazepril for blood pressure those medications have been stable for some time. He has never had this before that he can recall. Checked his heart rate at home and it was 118 while resting. [facility] Medical History Abdominal aortic aneurysm Allergies Arthritis Bone fracture Chest pain Chronic pain Coronary artery disease Degenerative disc disease, cervical DJD (degenerative joint disease) of cervical spine Essential hypertension Foreign body of right hand Gastrointestinal problem GERD (gastroesophageal reflux disease) Hiatal hernia History of back problems History of left heart catheterization (LHC) (~10/25/21) Hives Injury while performing home maintenance Kidney stones Left rotator cuff tear arthropathy Migraines Neurogenic bladder Non-smoker Osteoporosis Puncture wound of right hand with foreign body Pure hypercholesterolemia Retained foreign body of hand Right rotator cuff tear arthropathy Sliding hiatal hernia Trigeminal neuralgia of left side of face UTI (urinary tract infection) Vision loss of left eye Vision loss of right eye Home Medications amlodipine 5 mg-benazepril 20 mg capsule 1 ea PO QHS 05/16/18 [History Last Taken 05/05/19 22:00] omeprazole 20 mg capsule,delayed release 20 mg PO BID reflux 05/16/18 [History Last Taken 05/05/19 22:00] pravastatin 20 mg tablet 20 mg PO QHS 05/16/18 [History Last Taken Unknown] metoprolol succinate 25 mg tablet,extended release 24 hr 25 mg PO QHS 05/01/19 [History Last Taken 05/05/19 22:00] triamcinolone acetonide 55 mcg nasal spray aerosol (Nasacort) 1 spray intranasal BID 08/23/20 [History Last Taken Unknown] acetaminophen 650 mg tablet,extended release 650 mg PO TID PRN Pain 09/22/21 [History Last Taken Unknown] Allergy/AdvReac Type Severity Reaction Status Date / Time corn Allergy Swelling Verified 03/02/23 23:01 Penicillins Allergy Swelling Verified 03/02/23 23:01 Family History Father Angina at rest Heart disease Hypertension High cholesterol Mother Arthritis Heart disease Hypertension Brother Diabetes Surgical History Deviated nasal septum History of appendectomy History of broken finger History of repair of right rotator cuff History of retained foreign body fully removed History of tonsillectomy S/P left rotator cuff repair Social History Smoking Status: Never smoker alcohol intake: never substance use type: does not use caffeine: Yes Type: coffee Number of servings: 2 additional social history: DOES NOT USE ASPIRIN DOES USE IBUPROFEN NEEDED ROS ROS ED Constitutional Constitutional ED: Denies chills or fever(s) Eyes Eyes: Denies change in vision or diplopia ENT ENT ED: Denies rhinorrhea or sore throat Cardiovascular Cardiovascular: Reports palpitations; Denies chest pain or racing heartbeat Respiratory/Chest Respiratory/Chest: Denies cough or dyspnea Gastrointestinal Gastrointestinal: Denies abdominal pain, diarrhea, nausea or vomiting Genitourinary Genitourinary ED: Denies dysuria or hematuria Musculoskeletal Musculoskeletal: Denies back pain or neck pain Integumentary Denies abscess or rash Neurologic Neurologic: Denies headache(s), paresthesias or weakness Psychiatric Psychiatric: Denies anxiety or suicidal thoughts EXAM Physical Exam Const Vital Signs: 03/02/23 23:02 03/02/23 23:04 03/02/23 23:11 Temperature 96.9 F L 96.9 F L Temperature Source Temporal Temporal Pulse Rate 106 H 106 H Respiratory Rate 18 16 Respiratory Effort Normal Blood Pressure 151/92 H 151/92 H Blood Pressure Mean 111 111 Pulse Ox 99 99 Oxygen Delivery Method Room Air Room Air Positive well nourished and well developed General Appearance ED: well developed and NAD HEENT Reports moist mucous membranes normocephalic and atraumatic Eyes PERRL and EOMs intact bilaterally Neck full ROM and supple Resp normal respiratory effort and clear to auscultation bilaterally Cardio regular rate, regular rhythm and no murmurs Rate: other Other Details: Occasional irregularity, correlating with PACs occasionally on monitor GI non-tender and non-distended Auscultation: normoactive bowel sounds Palpation: soft Back/Spine no CVA tenderness General Back: other FROM Extremity normal to inspection General Extremety ED: Negative for edema, pulses abnormal or tenderness General Extremity: Negative for edema or pulses abnormal Neuro oriented x3, CN's II-XII intact bilaterally and no sensory deficits noted Sensorium / Orientation: awake and alert Motor Exam: strength 5/5 throughout Skin no rashes or lesions noted and no wounds MDM MDM MDM Narrative Medical decision making narrative: Upon putting the patient on the monitor he is having frequent PVCs. He occasionally felt a skipped but nothing as bad as before he got to the hospital. As he was observed here while working him up on the monitor, he states his symptoms resolved and he had no more PVCs eventually. There were 3 seen on the 6-second EKG that we have, they appear to be monomorphic, and there is no sign of any acute injury. Accordingly his blood tests are all normal except for a very slight hypokalemia, he was given a dose of potassium but I do not think we need to send him home on more. At this time I think it is safe for him to be discharged home. I recommend close outpatient follow-up, he has an appointment with his doctor this coming week and I think that is fine for now. He was established with cardiology but he saw one of our operations administrator that left the area so he may need to get reestablished with another provider at some point. History & Record Review Additional record(s) reviewed:: Prior outpatient record (Heart cath 09/2021: Si ngle-vessel CAD in LAD mild intraluminal irregularities without focal lesion. Echo showing elevated LV end-diastolic pressure and elevated RV pressure but otherwise unremarkable.) Lab Data Attestation: I reviewed the patient's lab results. Labs: Laboratory Results - last 24 hr 03/02/23 23:20 WBC 7.8 RBC 4.49 L Hgb 13.2 Hct 40.1 MCV 89.3 MCH 29.4 MCHC 32.9 RDW Std Deviation 43.8 RDW Coeff of Gaby 13.5 Plt Count 208 MPV 8.7 Immature Gran % (Auto) 0.400 Neut % (Auto) 54.5 Lymph % (Auto) 33.7 [place] % (Auto) 9.8 Eos % (Auto) 1.0 Baso % (Auto) 0.6 Absolute Neuts (auto) 4.2 Absolute Lymphs (auto) 2.62 Nucleated RBC % 0 Sodium 141 Potassium 3.4 L Chloride 110 H Carbon Dioxide 26.0 Anion Gap 5 BUN 18 Creatinine 0.93 Estim Creat Clear Calc 83.44 Est GFR (MDRD) Af Amer 104 Est GFR (MDRD) Non-Af 86 BUN/Creatinine Ratio 19.4 Glucose 130 H Calcium 9.0 Troponin I High Sens 7 Rhythm Strip Rhythm Strip: Sinus Rhythm Rate: 100 Ectopy: PVC(s) EKG Initial EKG: Attestation: I personally reviewed and interpreted this EKG as follows: Interpretation: Sinus Rhythm and No Acute Injury Pattern Comments: sev PVC's; otherwise, nml Discharge Plan Triage Chief Complaint: Palpitations ED Provider: Yonny Reddy Dx/Rx/DC Orders Clinical Impression: Heart palpitations, Unifocal PVCs, Hypokalemia Instructions: PVCs, ED Hypokalemia Prescriptions: No Action amlodipine-benazepril 1 EACH capsule 1 ea PO QHS omeprazole 20 MG capsule,delayed release(DR/EC) 20 mg PO BID pravastatin 20 MG tablet 20 mg PO QHS metoprolol succinate 25 MG tablet extended release 24 hr 25 mg PO QHS triamcinolone acetonide [Nasacort] 55 mcg Aerosol,[place] 1 spray INTRANASAL BID acetaminophen 650 mg tablet extended release 650 mg PO TID PRN (Reason: Pain) Primary Care Provider: ES BERNSTEIN Referrals: Ron Kincaid MD [Med Staff - Active Staff] - [facility] Doctor,Out of [Non-Staff] - [facility] appointment Activity Restrictions/Additional Instructions: If you have more episodes of the same symptoms, you may take an additional dose of your metoprolol Disposition Disposition: Home, Self Care
[2023-03-02 23:29] LABS: Absolute Lymphocyte Count 2.62 X10^3/uL (0.83-4.51); Absolute Neutrophil Count 4.2 X10^3/uL (2.0-7.7); Basophil# 0.05 X10^3/uL; Basophil% 0.6 % (0-1); Eosinophil# 0.08 X10^3/uL; Hematocrit 40.1 % (40-54); Hemoglobin 13.2 g/dL (13.0-16.5); Lymphocyte # 2.62 X10^3/ul (0.83-4.51); Lymphocyte % 33.7 % (19-41); Mean Corp Hgb Conc 32.9 g/dL (32-36); Mean Corpuscular Hgb 29.4 pg (27.0-32.0); Mean Corpuscular Volume 89.3 fL (80-94); Mean Platelet Vol. 8.7 fl (6.2-12.0); Monocyte# 0.76 X10^3/uL; Monocyte% 9.8 % (0-10); NRBC Flagged by Analyzer 0 % (0-5); Neutrophil # 4.23 X10^3/uL (2.7-7.7); Neutrophil % 54.5 % (47-70); Platelet Count 208 K/mm3 (150-450); RBC Distribution Width CV 13.5 % (11.6-14.6); RBC Distribution Width SD 43.8 fl (35.1-43.9); Red Blood Count 4.49 M/mm3 (4.6-6.2); White Blood Count 7.8 K/mm3 (4.4-11.0)
[2023-03-02 23:48] LABS: Anion Gap 5 (5-15); BUN 18 mg/dL (7-18); BUN/Creat Ratio 19.4 RATIO (10-20); Chloride 110 mmol/L (98-107); Creatinine, Serum 0.93 mg/dL (0.70-1.30); EST Glomerular Filtration Rate 86 mL/min (>60); Est Glom Filt Rate - Afr Amer 104 mL/min (>60); Estimated Creatinine Clearance 83.44 ml/min; Glucose 130 mg/dL (74-106); Potassium 3.4 mmol/L (3.5-5.1); Sodium Level 141 mmol/L (136-145); Troponin-I HS 7 pg/mL (3.0-78.0)
[2023-03-03 01:01] VITALS: BP 119/70
[2023-03-03] MEDS: Potassium Chloride Oral Tablet 20 MEQ 40 MEQ PO (01:31)
== END 2023-03-03 02:18 | disposition home or self-care (01) ==
PROVIDERS: Emergency Provider Emergency Medicine; Visit Provider Emergency Medicine
DX: R00.2 Palpitations (principal); I49.3 Ventricular premature depolarization; E87.6 Hypokalemia; K21.9 Gastro-esophageal reflux disease without esophagitis; I25.10 Atherosclerotic heart disease of native coronary artery without angina pectoris; Z79.899 Other long term (current) drug therapy
CPT/HCPCS: 80048; 84484; 85025; 93005; 99284; A4216

== ENCOUNTER → 2023-05-22 | Outpatient (CLI) | payer MEDICARE, OTHER, SELFPAY ==
[2023-05-22 12:06] LABS: Anion Gap 7 (5-15); BUN 16 mg/dL (7-18); BUN/Creat Ratio 16.9 RATIO (10-20); Calcium,Total 9.4 mg/dL (8.5-10.1); Chloride 108 mmol/L (98-107); Creatinine, Serum 0.95 mg/dL (0.70-1.30); EST Glomerular Filtration Rate 84 mL/min (>60); Est Glom Filt Rate - Afr Amer 102 mL/min (>60); Glucose 92 mg/dL (74-106); Potassium 4.1 mmol/L (3.5-5.1); Sodium Level 141 mmol/L (136-145)
== END | disposition home or self-care (01) ==
LOC: LAB 11:08
PROVIDERS: Referring Provider Physician Assistant Medical; Visit Provider Physician Assistant Medical
DX: I10 Essential (primary) hypertension (principal); R00.2 Palpitations
CPT/HCPCS: 36415; 80048

== ENCOUNTER → 2023-05-28 | Outpatient (CLI) | payer MEDICARE, OTHER, SELFPAY ==
--- OUTSIDE RECORDS SUMMARY | 2023-05-28 06:58 | XMS RPT_ITS | CCD ---
Author Name Unknown Address [address] [place] [address] Organization [facility] Care Team Providers Care Casing Fluid Tender Name Role Phone PREM HOOPER, SAE Primary Care Physician Prem HOOPER, Sae Fink Primary Care Provider Prem HOOPER, Sae Fink Primary Care Provider PREM HOOPER, SAE Primary Care Physician [phone] SAE AMARO Primary Care Unavailable SAE AMARO Primary Care Unavailable ALDO HOOPER, DR MOORE Attending Unavaildewey AMARO MD, SAE Primary Care Unavailable PREM HOOPER, SAE Primary Care Unavailable PREM HOOPER, SAE Attending Unavailable PREM HOOPER, SAE Primary Care Unavailable PREM HOOPER, SAE Attending Unavailable ALDO HOOPER, DR MOORE Attending Keely AMARO MD, SAE Primary Care Unavailable Allergies Allergy Classification Reported Allergen(s) Allergy Type Date of Onset Reaction(s) Facility (14 sources) Penicillins; Translations: [penicillins] Drug allergy 7 Hives, Swelling [facility] (5 sources) Sherman silk preparation; Translations: [CORN] Drug Allergy 7 Hives, Swelling, Weal (disorder) [facility] Work Phone: (3 sources) Seasonal allergy; Translations: [SEASONAL ALLERGIES] Allergy to substance 7 Other: See Comments [facility] Work Phone: Medications Current Medications Medication Drug Class(es) Dates Sig (Normalized) Sig (Original) acetaminophen 325 mg oral capsule (11 sources) Start: 05-22-2019 Tylenol 325 mg oral capsule Dose : 325 mg = 1 cap(s), Oral, q4h, PRN as needed for fever, # 20 cap(s), 0 Refill(s) Start Date: 05/22/19 Status: Ordered amLODIPine 5 mg / benazepril hydrochloride 20 mg oral capsule (13 sources) Dihydropyridine Calcium Channel Terence, Angiotensin Converting Enzyme Inhibitor Start: 06-14-2022 take 1 capsule by mouth once daily amlodipine-benaz epril 5 mg-20 mg oral capsule Dose = 1 cap(s), Oral, Daily, # 90 cap(s), 3 Refill(s), Pharmacy: [facility], Chronic hypertension, 182.9, cm, 06/14/22 9:11:00 EDT, Height, kg, 06/14/22 9:11:00 EDT, Dosing Weight Start Date: 06/14/22 Status: Ordered Completed/Discontinued Medications Medication Drug Class(es) Dates Sig (Normalized) Sig (Original) 168 hr buprenorphine 0.005 mg/hr transdermal system (2 sources) Partial Opioid Agonist apply 1 dose transdermal route every week in the morning buprenorphine (BUTRANS) 5 mcg/hour Apply 1 Patch as directed one time a week. Change every Sunday AM. 0 Active Problems Problem Classification Problem Date Documented Da te Episodic/Chronic Abdominal hernia (20 sources) Hiatal hernia; Translations: [Sliding hiatus hernia ] 11-15-2018 Episodic Allergic reactions (11 sources) Allergic condition 05-22-2019 Episodic Calculus of urinary tract (20 sources) Kidney stone; Translations: [History of calculus of kidney] 02-06-2016 Episodic Deficiency and other anemia (7 sources) Chronic anemia 09-14-2021 Episodic Disorders of lipid metabolism (13 sources) Dyslipidemia; Translations: [Hyperlipidemia] 05-22-2019 Chronic Esophageal disorders (20 sources) Gastroesophageal reflux disease; Translations: [Gastroesophageal reflux disease without esophagitis] 11-15-2018 Chronic Essential hypertension (13 sources) Hypertensive disorder; Translations: [Essential hypertension] 05-22-2019 Chronic Genitourinary symptoms and ill-defined conditions (20 sources) History of urinary tract infection; Translations: [Incomplete emptying of bladder] 02-04-2021 Episodic Results Test Name Value Interpretation Reference Range Facil ity Vital Signs Date Time Vital Sign Value Performing Clinician Jax phillips 06-11-2022 08:24-0400 Body temperature 97.9 [degF] Krislyn Aberegg PA Work Phone: [facility] 06-11-2022 08:24-0400 Body weight 90.72 kg Krislyn Aberegg PA Work Phone: [facility] 06-11-2022 08:24-0400 Diastolic blood pressure 80 mm[Hg] Krislyn Aberegg PA Work Phone: [facility] 06-11-2022 08:24-0400 Heart rate 77 /min Krislyn Aberegg PA Work Phone: [facility] 06-11-2022 08:24-0400 Respiratory rate 18 /min Krislyn Aberegg PA Work Phone: [facility] 06-11-2022 08:24-0400 SaO2% (BldA) [Mass fraction] 98 % Krislyn Aberegg PA Work Phone: [facility] 06-11-2022 08:24-0400 Systolic blood pressure 130 mm[Hg] Krislyn Aberegg PA Work Phone: [facility] 07-06-2021 08:13-0400 Body temperature 98.4 [degF] Pamela Athy PA-C Work Phone: [facility] 07-06-2021 08:13-0400 Body weight 87.54 kg Pamela Athy PA-C Work Phone: [facility] 07-06-2021 08:13-0400 Diastolic blood pressure 82 mm[Hg] Pamela Athy PA-C Work Phone: [facility] 07-06-2021 08:13-0400 Heart rate 99 /min Pamela Athy PA-C Work Phone: [facility] 07-06-2021 08:13-0400 Respiratory rate 20 /min Pamela Athy PA-C Work Phone: [facility] 07-06-2021 08:13-0400 SaO2% (BldA) [Mass fraction] 98 % Pamela Velasco PA-C Work Phone: [facility] 07-06-2021 08:13-0400 Systolic blood pressure 142 mm[Hg] Pamela Velasco PA-C Work Phone: [facility] Encounters Encounter Date Encounter Type Care Provider Facility Start: 05-07-2023 End: 05-08-[address] TERESA CARLSON MD Facility:A Start: 05-07-2023 End: 05-07-[address] TERESA CARLSON MD [facility] Start: 05-01-2023 End: 05-02-[address] TERESA CARLSON MD Facility:B Start: 03-28-2023 End: 03-28-2023 ambulatory SAE AMARO Facility:[facility] Start: 03-02-2023 End: 03-03-2023 ambulatory SAE AMARO MD Facility:B Start: 03-02-2023 End: 03-02-2023 Patient encounter procedure SAE AMARO MD [facility] Start: 08-30-2022 End: 08-31-2022 ambulatory SAE AMARO MD Facility:B Start: 08-30-2022 End: 08-30-2022 Patient encounter procedure SAE AMARO MD [facility] Start: 06-11-2022 End: 06-11-2022 ambulatory SAE AMARO Facility:[facility] Start: 06-11-2022 End: 06-11-2022 Office outpatient visit 25 minutes Chao HARVEY Work Phone: [facility] Procedures Date Procedure Procedure Detail Performing Clinician Start: 06-11-2022 STREP A MOLECULAR (POC) Chao HARVEY Work Phone: Start: 05-24-[address] TERESA CAMPBELL MD Start: 08-30-2016 Adult depression screening assessment Pameladewey Velasco MINDY Work Phone: Cervical facet joint pain (finding) DR TERESA CARLSON MD Plan of Treatment Date Care Activity Detail Author Start: 07-23-2028 Urine microalbumin profile DTAP,TDAP,TD (2 - Td or Tdap) [facility] Start: 06-11-2022 End: 06-25-2022 Influenza virus A and B RNA and SARS-CoV-2 (COVID-19) N gene panel - Respiratory specimen by DIANE with probe detection COVID WITH FLUA+B, ROUTINE Microbiology Routine URI, acute Expected: 06/11/2022, Expires: 06/25/2022 [facility] Work Phone: Immunizations Immunization Date Immunization Notes Care Provider [facility] 01-04-2023 influenza virus vaccine, unspecified formulation DR TERESA CARLSON MD [facility] 01-04-2023 SARS-CoV-2 (COVID-19 ) [id number] DR TERESA CARLSON MD [facility] 01-09-2022 influenza virus vaccine, unspecified formulation DR TERESA CARLSON MD [facility] 12-13-2021 SARS-CoV-2 (CV19)mRNA-1273 bivalent vac SAE AMARO MD [facility] 12-13-2021 SARSCoV2 (CV19)mRNA-1273(6y+ bival jayashree DR TERESA CARLSON MD [facility] 07-26-2021 SARS-CoV-2 (COVID-19 ) mRNA-1273 vaccine SAE AMARO MD [facility] 01-24-2021 SARS-CoV-2 (COVID-19 ) [id number] vaccine SAE AMARO MD [facility] Payers Date Payer Category Payer Unknown HOSPITAL/MEDICAL GENERIC MEDICAL GENERIC [id number] 2022-Present [phone] [address] [place] [address] Indemnity [id number] 2022 Unknown [id number] 2019 Medicare MEDICARE MEDICAR E A AND B [id number] 2019-Present [phone] [place] [address] Medicare [id number] 2019 Medicare MEDICARE MEDICAR E A AND B [id number] 2019-Present [phone] [place] [address] Medicare [id number] 2019 Medicare [id number] 1955 Unknown [id number] 1955 Unknown [id number] 1955 Unknown [id number] 1955 Unknown [id number] Social History Date Type Detail Facility Start: 04-01-2018 End: 11-06-2018 Never smoked tobacco (finding) [facility] Sex Assigned At Male [facility] Start: 08-30-2016 End: 04-01-2018 Tobacco use and exposure Smokeless tobacco non-user [facility] Work Phone: Start: 07-06-2021 Alcohol intake Current non-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 Author Type: Physician Gameplay Programmer Type: Progress Notes Filed: 03/28/2023 9:21 AM Note Text: This note was created using Zadyriter. Subjective Connie Morgan is a 67 year old male. HPI 7-year-old male presents for congestion, left ear pain x 6 days. Patient states that about 6 days ago he started getting some left ear pain. He has sinus pressure, nasal congestion, postnasal drainage. He has a dry cough at night. He denies any fevers. No vomiting or diarrhea. He states he has history of ear infections in the past and did have a tube in his left ear about a year ago. This has since fell out. He has no drainage from the ear. No other complaint. No past medical history on file. No past surgical history on file. ALLERGIES Sherman, Penicillins, and Seasonal Allergies MEDICATIONS naproxen sodium 220 mg cap Take 1 capsule by mouth twice daily. metoprolol succinate ER (TOPROL XL) 25 mg 24 hr tablet Take 1 tablet by mouth daily at bedtime. omeprazole (PRILOSEC) 20 mg capsule Take 20 mg by mouth twice daily. amLODIPine-benazepril (LOTREL) 5-20 mg per capsule Take 1 capsule by mouth daily at bedtime. mometasone (NASONEX) 50 mcg/actuation nasal spray Use 1 Columbia in the nose twice daily. pravastatin (PRAVACHOL) 20 mg tablet 1 tablet daily at bedtime. doxycycline monohydrate 100 mg tablet Take 1 tablet by mouth two times a day for 7 days. benzonatate (TESSALON PERLES) 100 mg capsule Take 1 capsule by mouth three times daily as needed for cough. (Patient not taking: Reported on 03/28/2023) clindamycin (CLEOCIN) 300 mg capsule Take 300 mg by mouth three times a day. Lactobacillus acidophilus (PROBIOTIC ORAL) Take by mouth. buprenorphine (BUTRANS) 5 mcg/hour Apply 1 Patch as directed one time a week. Change every Sunday AM. (Patient not taking: Reported on 06/11/2022) fentaNYL (DURAGESIC) 25 mcg/hr Apply 1 Patch as directed every 72 hours. carBAMazepine, mood stabiliz, 200 mg CM12 Take by mouth. 2 tablets in am., 1 tablet in pm (Patient not taking: Reported on 06/11/2022) BYSTOLIC 10 mg tablet 2 tablets once daily. 20mg - 1 daily at bedtime (Patient not taking: Reported on 06/11/2022) No family history on file. Social History Tobacco Use Smoking status: Never Smokeless tobacco: Never Vaping Use Vaping Use: Never used Substance Use Topics Alcohol use: No Review of Systems Constitutional: Negative for chills and fever. HENT: Positive for congestion, ear pain and sinus pain. Negative for sore throat. Respiratory: Positive for cough. Negative for shortness of breath. Gastrointestinal: Negative for diarrhea and vomiting. Objective BP 126/78 Pulse 84 Temp 37 ?C (98.6 ?F) (Right Tympanic) Resp 16 Wt 89.2 kg (196 lb 9.6 oz) SpO2 98% BMI 25.94 kg/m? Physical Exam Vitals and nursing note reviewed. Constitutional: General: He is not in acute distress. Appearance: Normal appearance. He is not toxic-appearing. HENT: Right Ear: Tympanic membrane and ear canal normal. Left Ear: A middle ear effusion is present. Tympanic membrane is bulging. Ears: Comments: Left TM bulging with purulent middle ear effusion Nose: Left Sinus: Maxillary sinus tenderness present. Mouth/Throat: Mouth: Mucous membranes are moist. Eyes: Conjunctiva/sclera: Conjunctivae normal. Cardiovascular: Rate and Rhythm: Normal rate and regular rhythm. Pulmonary: Effort: Pulmonary effort is normal. Breath sounds: Normal breath sounds. Skin: General: Skin is warm and dry. Neurological: Mental Status: He is alert. Assessment and Plan ASSESSMENT/PLAN: 1. Acute otitis media, left - ICD9: 382.9, ICD10: H66.92 (primary diagnosis) - Will begin treatment with as per antibiotic as written, see orders-doxycycline. Allergy to penicillin. - The patient should also be given OTC decongestants prn for the first 5-7 days of treatment. - Supportive care with plenty of fluids, rest, and analgesia prn. 2. Sinus congestion - ICD9: 478.19, ICD10: R09.81 -Symptoms x 6 days. Discussed likely viral cause. -Treating your with doxycycline which would cover for bacterial sinusitis as well. -Clines viral swab Diagnosis and treatment plan were discussed and questions were answered to the patient's satisfaction. Pt acknowledged understanding of concepts and follow up plan. Specific signs and symptoms that would indicate the need for higher level of care were discussed in detail warranting prompt ER evaluation. WES Jean [facility] 06-11-2022 Note HNO ID: [id number] Author: WES Jean Service: ? Author Type: Physician Gameplay Programmer Type: Progress Notes Filed: 06/11/2022 8:43 AM Note Text: This note was created using NoteWriter. Subjective Connie Morgan is a 66 year old male. HPI 66-year-old male presents for sinus congestion cough and sore throat x2 days. Patient states that on Sunday he started getting runny nose and sinus drainage along with cough and scratchy throat. His tested positive for strep last week. She also has URI symptoms. Patient denies any fevers. No chest pain or shortness of breath. No vomiting or diarrhea. Review of Systems Constitutional: Negative for chills and fever. HENT: Positive for congestion and sore throat. Respiratory: Positive for cough. Negative for shortness of breath. Gastrointestinal: Negative for diarrhea and vomiting. Objective BP 130/80 Pulse 77 Temp 36.6 ?C (97.9 ?F) Resp 18 Wt 90.7 kg (200 lb) SpO2 98% BMI 26.39 kg/m? Physical Exam Vitals and nursing note reviewed. Constitutional: General: He is not in acute distress. Appearance: Normal appearance. He is not toxic-appearing. HENT: Right Ear: Tympanic membrane and ear canal normal. Left Ear: Tympanic membrane and ear canal normal. A PE tube is present. Ears: Comments: Recent PE tube placement. Tube in place. No signs of infection. No drainage Nose: Congestion present. Mouth/Throat: Mouth: Mucous membranes are moist. Pharynx: Uvula midline. Posterior oropharyngeal erythema present. No oropharyngeal exudate. Tonsils: No tonsillar exudate or tonsillar abscesses. Eyes: Conjunctiva/sclera: Conjunctivae normal. Cardiovascular: Rate and Rhythm: Normal rate and regular rhythm. Pulmonary: Effort: Pulmonary effort is normal. Breath sounds: Normal breath sounds. Skin: General: Skin is warm and dry. Neurological: Mental Status: He is alert. Assessment and Plan ASSESSMENT/PLAN: 1. Sore throat - ICD9: 462, ICD10: J02.9 (primary diagnosis) - suspect viral - Alere Strep Test negative, no culture pending - Discussed supportive care treatment with fluids, rest and analgesia. - The patient may also use warm salt water gargles, throat lozenges and/or OTC throat spray as needed. - STREP A MOLECULAR (POC) 2. URI, acute - ICD9: 465.9, ICD10: J06.9 - Discussed viral etiology and rationale for treatment. - Symptomatic treatment with prn analgesia - Supportive care with fluids and rest - COVID WITH FLUA+B, ROUTINE -Out of window for Tamiflu -Rx for Tessalon Perles Diagnosis and treatment plan were discussed and questions were answered to the patient's satisfaction. Pt acknowledged understanding of concepts and follow up plan. Specific signs and symptoms that would indicate the need for higher level of care were discussed in detail warranting prompt ER evaluation. WES Jean [facility] 06-11-2022 Instructions WES Jean - 06/11/2022 8:41 AM EDT Rest, increase water intake Motrin or Tylenol as needed for fever or pain. Salt water gargles, chloraseptic spray or lozenges as needed for sore throat. Warm beverages, honey. Nasal saline spray as needed Cool mist humidifier at night A cold normally lasts 7-10 days. If your symptoms are lasting longer, develop fever, or worsening by that time instead of improving then return to clinic or follow up with PCP for re-evaluation. Tylenol (generic acetaminophen) 500 mg-2 tabs every 8 hrs. as needed for fever and aches Ibuprofen 600 mg (3-200mg tablets) every 6 hours -Mucinex (generic is fine) Guaifenesin 1200 mg twice daily to help with cough and to thin out mucus documented in this encounter [facility] 06-11-2022 History of Presen t illness Narrative This note was created using Authenticlick. Subjective Connie Morgan is a 66 year old male. HPI 66-year-old male presents for sinus congestion cough and sore throat x2 days. Patient states that on Sunday he started getting runny nose and sinus drainage along with cough and scratchy throat. His tested positive for strep last week. She also has URI symptoms. Patient denies any fevers. No chest pain or shortness of breath. No vomiting or diarrhea. Review of Systems Constitutional: Negative for chills and fever. HENT: Positive for congestion and sore throat. Respiratory: Positive for cough. Negative for shortness of breath. Gastrointestinal: Negative for diarrhea and vomiting. Objective BP 130/80 Pulse 77 Temp 36.6 C (97.9 F) Resp 18 Wt 90.7 kg (200 lb) SpO2 98% BMI 26.39 kg/m Physical Exam Vitals and nursing note reviewed. Constitutional: General: He is not in acute distress. Appearance: Normal appearance. He is not toxic-appearing. HENT: Right Ear: Tympanic membrane and ear canal normal. Left Ear: Tympanic membrane and ear canal normal. A PE tube is present. Ears: Comments: Recent PE tube placement. Tube in place. No signs of infection. No drainage Nose: Congestion present. Mouth/Throat: Mouth: Mucous membranes are moist. Pharynx: Uvula midline. Posterior oropharyngeal erythema present. No oropharyngeal exudate. Tonsils: No tonsillar exudate or tonsillar abscesses. Eyes: Conjunctiva/sclera: Conjunctivae normal. Cardiovascular: Rate and Rhythm: Normal rate and regular rhythm. Pulmonary: Effort: Pulmonary effort is normal. Breath sounds: Normal breath sounds. Skin: General: Skin is warm and dry. Neurological: Mental Status: He is alert. Assessment and Plan ASSESSMENT/PLAN: 1. Sore throat - ICD9: 462, ICD10: J02.9 (primary diagnosis) - suspect viral - Alere Strep Test negative, no culture pending - Discussed supportive care treatment with fluids, rest and analgesia. - The patient may also use warm salt water gargles, throat lozenges and/or OTC throat spray as needed. - STREP A MOLECULAR (POC) 2. URI, acute - ICD9: 465.9, ICD10: J06.9 - Discussed viral etiology and rationale for treatment. - Symptomatic treatment with prn analgesia - Supportive care with fluids and rest - COVID WITH FLUA+B, ROUTINE -Out of window for Tamiflu -Rx for Tessalon Perles Diagnosis and treatment plan were discussed and questions were answered to the patient's satisfaction. Pt acknowledged understanding of concepts and follow up plan. Specific signs and symptoms that would indicate the need for higher level of care were discussed in detail warranting prompt ER evaluation. WES Jean documented in this encounter [facility] 07-06-2021 History of Presen t illness Narrative This note was created using Zadyriter. Subjective Connie Morgan is a 65 year old male. HPI Patient presents with cough, sore throat nasal congestion over the past 2 to 3 weeks. He has had left-sided facial pain and pressure worsening this morning as well. His grandkids were sick with influenza A last week. He states he really did not have a fever. He is just not getting over it and now the facial pain is worse. No chest pain or shortness of breath. No OTC meds. Denies loss of smell or taste. Review of Systems Constitutional: Positive for fatigue. Negative for fever. HENT: Positive for congestion, sinus pressure, sinus pain and sore throat. Negative for ear pain. Respiratory: Positive for cough. Negative for shortness of breath and wheezing. Cardiovascular: Negative. Gastrointestinal: Negative. Genitourinary: Negative. Musculoskeletal: Negative. Neurological: Positive for headaches. All other systems reviewed and are negative. No past medical history on file. Current Outpatient Medications Medication Sig Dispense Refill Lactobacillus acidophilus (PROBIOTIC ORAL) Take by mouth. naproxen sodium 220 mg cap Take 1 capsule by mouth twice daily. metoprolol succinate ER (TOPROL XL) 25 mg 24 hr tablet Take 1 tablet by mouth daily at bedtime. omeprazole (PRILOSEC) 20 mg capsule Take 20 mg by mouth twice daily. amLODIPine-benazepril (LOTREL) 5-20 mg per capsule Take 1 capsule by mouth daily at bedtime. mometasone (NASONEX) 50 mcg/actuation nasal spray Use 1 [place] in the nose twice daily. pravastatin (PRAVACHOL) 20 mg tablet 1 tablet daily at bedtime. doxycycline (VIBRA-TABS) 100 mg tablet Take 1 tablet by mouth twice daily for 10 days. 20 tablet 0 benzonatate (TESSALON PERLES) 100 mg capsule Take 2 capsules by mouth three times daily as needed. 30 capsule 0 predniSONE (DELTASONE) 20 mg tablet Take 2 tablets by mouth once daily for 5 days. 10 tablet 0 clindamycin (CLEOCIN) 300 mg capsule Take 300 mg by mouth three times daily. benzonatate (TESSALON PERLE) 100 mg capsule Take 2 capsules by mouth three times daily as needed. (Patient not taking: Reported on 05/01/2019 ) 42 capsule 0 buprenorphine (BUTRANS) 5 mcg/hour Apply 1 Patch as directed one time a week. Change every Sunday AM. fentaNYL (DURAGESIC) 25 mcg/hr Apply 1 Patch as directed every 72 hours. carBAMazepine, mood stabiliz, 200 mg CM12 Take by mouth. 2 tablets in am., 1 tablet in pm BYSTOLIC 10 mg tablet 2 tablets once daily. 20mg - 1 daily at bedtime No current facility-administered medications for this visit. No past surgical history on file. No family history on file. Social History Tobacco Use Smoking status: Never Smoker Smokeless tobacco: Never Used Vaping Use Vaping Use: Never used Substance Use Topics Alcohol use: No Drug use: Not on file Objective BP 142/82 Pulse 99 Temp 36.9 C (98.4 F) Resp 20 Wt 87.5 kg (193 lb) SpO2 98% BMI 25.46 kg/m Physical Exam Vitals reviewed. Constitutional: Appearance: Normal appearance. HENT: Head: Normocephalic and atraumatic. Right Ear: Tympanic membrane, ear canal and external ear normal. Left Ear: Tympanic membrane, ear canal and external ear normal. Nose: Congestion present. Right Sinus: No maxillary sinus tenderness or frontal sinus tenderness. Left Sinus: Maxillary sinus tenderness present. No frontal sinus tenderness. Mouth/Throat: Lips: [place]. Pharynx: Oropharynx is clear. Cardiovascular: Rate and Rhythm: Normal rate and regular rhythm. Heart sounds: Normal heart sounds. Pulmonary: Effort: Pulmonary effort is normal. Breath sounds: Normal breath sounds. Musculoskeletal: Cervical back: Neck supple. Lymphadenopathy: Cervical: No cervical adenopathy. Skin: General: Skin is warm and dry. Findings: No rash. Neurological: Mental Status: He is alert. Assessment and Plan ASSESSMENT/PLAN: 1. Sinobronchitis - ICD9: 473.9, 490, ICD10: J32.9, J40 - Will begin treatment with Doxycycline - Supportive care with plenty of fluids, rest, and analgesia prn. - Follow up in 3-5 days if symptoms persist or worsen. - DOXYCYCLINE HYCLATE 100 MG TABLET - BENZONATATE 100 MG CAPSULE - PREDNISONE 20 MG TABLET Pamela Velasco PA-C documented in this encounter [facility] Evaluation + Plan note Future Appointments Appointment Date:02/11/2021 11:30:00 AM Scheduled Provider:TERESA CARLSON MD Location:[facility] Appointment Type:[facility] Appointment Date:03/29/2021 09:00:00 AM Scheduled Provider:SAE AMARO MD Location:[facility] Appointment Type:PC OV Follow Up Future Scheduled TestsMagnesium Level 11/15/20Complete Blood Count 11/15/20Lipid Profile 11/15/20Complete Metabolic Panel 11/15/20 [facility] Evaluation + Plan note Future Appointments Appointment Date:03/29/2021 09:00:00 AM Scheduled Provider:SAE AMARO MD Location:[facility] Appointment Type:PC OV Follow Up Appointment Date:02/13/2022 09:00:00 AM Scheduled Provider:TERESA CARLSON MD Location:[facility] Appointment Type:[facility] Future Scheduled TestsCreatinine 02/11/21Magnesium Level 11/15/20Prostate Specific Antigen 02/11/22Complete Blood Count 11/15/20Lipid Profile 11/15/20Complete Metabolic Panel 11/15/20 [facility] Evaluation + Plan note Future Appointments Appointment Date:03/11/2021 09:00:00 AM Scheduled Provider:SAE AMARO MD Location:[facility] Appointment Type:PC OV Follow Up Appointment Date:02/13/2022 09:00:00 AM Scheduled Provider:TERESA CARLSON MD Location:[facility] Appointment Type:[facility]O OV Future Scheduled TestsCreatinine 02/11/21Prostate Specific Antigen 02/11/22 [facility] Evaluation + Plan note Future Appointments Appointment Date:09/14/2021 08:30:00 AM Scheduled Provider:SAE AMARO MD Location:[facility] Appointment Type:PC OV Appointment Date:02/13/2022 09:00:00 AM Scheduled Provider:TERESA CARLSON MD Location:[facility] Appointment Type:URO OV Future Scheduled TestsCreatinine 02/11/21Prostate Specific Antigen 02/11/22 [facility] Evaluation + Plan note Future Appointments Appointment Date:03/17/2022 09:00:00 AM Scheduled Provider:SAE AMARO MD Location:[facility] Appointment Type:PC OV Follow Up Appointment Date:03/20/2022 09:00:00 AM Scheduled Provider:TERESA CARLSON MD Location:UROLOG[facility] Appointment Type:[facility] Future Scheduled TestsCreatinine 02/11/21Creatinine 02/01/22Magnesium Level 03/16/22Prostate Specific Antigen 02/11/22Prostate Specific Antigen 02/01/22Prostate Specific Antigen 03/16/22Thyroid Stimulating Hormone 03/16/22Free T4 03/16/22Urine Culture 02/01/22Complete Blood Count 03/16/22Lipid Profile 03/16/22Complete Metabolic Panel 03/16/22 [facility] Evaluation + Plan note Future Appointments Appointment Date:03/17/2022 09:00:00 AM Scheduled Provider:SAE AMARO MD Location:[facility] Appointment Type:PC OV Follow Up Future Scheduled TestsCreatinine 02/01/22Prostate Specific Antigen 02/11/22Prostate Specific Antigen 02/01/22 [facility] Evaluation + Plan note Future Appointments Appointment Date:03/17/2022 09:00:00 AM Scheduled Provider:SAE AMARO MD Location:[facility] Appointment Type:PC OV Follow Up Diagnostic Tests PendingUrine Culture 03/13/22 Future Scheduled TestsCreatinine 02/01/22Prostate Specific Antigen 02/11/22Prostate Specific Antigen 02/01/22 [facility] Evaluation + Plan note Future Appointments Appointment Date:06/14/2022 09:00:00 AM Scheduled Provider:SAE AMARO MD Location:[facility] Appointment Type:PC OV Follow Up Appointment Date:05/07/2023 08:50:00 AM Scheduled Provider:TERESA CARLSON MD Location:[facility] Appointment Type:[facility] Future Scheduled TestsCreatinine 05/08/23Creatinine 02/01/22Magnesium Level 09/15/22Prostate Specific Antigen 02/11/22Prostate Specific Antigen 05/08/23Prostate Specific Antigen 02/01/22Complete Blood Count 09/15/22Lipid Profile 09/15/22Complete Metabolic Panel 09/15/22 [facility] Evaluation + Plan note Future Appointments Appointment Date:09/06/2022 08:30:00 AM Scheduled Provider:SAE AMARO MD Location:[facility] Appointment Type:PC OV Controlled Medication Appointment Date:05/07/2023 08:50:00 AM Scheduled Provider:TERESA CARLSON MD Location:[facility] Appointment Type:[facility]O OV Future Scheduled TestsCreatinine 05/08/23Creatinine 02/01/22Prostate Specific Antigen 02/11/22Prostate Specific Antigen 05/08/23Prostate Specific Antigen 02/01/22 [facility] Evaluation + Plan note Future Appointments Appointment Date:03/08/2023 08:30:00 AM Scheduled Provider:SAE AMARO MD Location:[facility] Appointment Type:PC OV Follow Up Appointment Date:05/07/2023 08:50:00 AM Scheduled Provider:TERESA CARLSON MD Location:UROLOGY Appointment Type:URO OV Future Scheduled TestsCreatinine 05/08/23Prostate Specific Antigen 02/11/22Prostate Specific Antigen 05/08/23 [facility] Evaluation + Plan note Future Appointments Appointment Date:09/07/2023 08:30:00 AM Scheduled Provider:SAE AMARO MD Location:[facility] Appointment Type:PC OV Follow Up Appointment Date:05/23/2024 09:00:00 AM Scheduled Provider:TERESA CARLSON MD Location:UROLOGY Appointment Type:URO OV Future Scheduled TestsCreatinine 05/07/24Iron Level 09/07/23Prostate Specific Antigen 05/07/24Complete Blood Count 09/07/23Lipid Profile 09/07/23Complete Metabolic Panel 09/07/23 [facility] Sore [facility]- Primary Acute pharyngitis URI, acute Acute upper respiratory infections of unspecified site [facility] Narrative No data available for this section [facility] Discharge instructions No data available for this section [facility] Progress note No data available for this section [facility] Summary Purpose Family History No Family History Records Found No data available for this section No Family History Records Found No data available for this section No Family History Records Found Advance Directives No Advanced Directives Records FoundNo Advanced Directives Records FoundNo Advanced Directives Records Found Health Concerns Infection Onset Date Last Indicated Resolved Time COVID-19 Rule-Out 06/11/2022 06/11/2022 Additional Source Comments (unrecognized sect ion and content) No Status Records FoundNo Status Records FoundNo Status Records Found INFORMATION SOURCE (unrecogn ized section and content) DATE CREATED AUTHOR AUTHOR'S ORGANIZ ATION 03/29/2023 [facility] DATE CREATED AUTHOR AUTHOR'S ORGANIZ ATION 05/23/2023 [facility] ([place]) Source Comments (unrecognize d section and content) In the event this informatio n is protected by the Federal Confidentiality of Alcohol and Drug Abuse Patient Records regulations: The Federal rules restrict any use of the information to criminally investigate or prosecute any alcohol or drug abuse patient.[facility] the event this information is protected by the Federal Confidentiality of Alcohol and Drug Abuse Patient Records regulations: The Federal rules restrict any use of the information to criminally investigate or prosecute any alcohol or drug abuse patient.[facility] Reason for Visit (unrecogniz ed section and content) Reason Comments Cough With sinus problem, sore throat x 2 days Care Teams (unrecognized sec tion and content) Casing Fluid Tender Relationship Specialty Start Date End Date Sae Amaro MD PCP - General Family Medicine 05/20/16 Care Team (unrecognized sect ion and content) Care Team Personnel Name: SHAE DELGADO DO Position: P3 Physician - Anesthesiology Member Role: Pain Management Address: Address: [facility] [address] [place], [place] [address]- Name: SAE AMARO MD Position: P4 Physician - Primary Care Member Role: Primary Care Physician Address: Address: [address] [place] [address] [address] [place] [address]- Care Team Related Persons Name: MARIANN MORGAN Address: Home [address] [place] [address] [address] [place] [phone] Care Team Personnel Name: SHAE DELGADO DO Position: P3 Physician - Anesthesiology Member Role: Pain Management Address: Address: [facility] [address] [place], [place] [address]- Name: SAE AMARO MD Position: P4 Physician - Primary Care Member Role: Primary Care Physician Address: Address: [address] [place] [address] [address] [place] [id number]- Care Team Related Persons Name: MARIANN MORGAN Address: Home [address] [place] [address] [address] [place] [phone] Care Team Personnel Name: SHAE DELGADO DO Position: P3 Physician - Anesthesiology Member Role: Pain Management Address: Address: [facility] [address] [place], [place] [id number]- Name: SAE AMARO MD Position: P4 Physician - Primary Care Member Role: Primary Care Physician Address: Address: [address] [place] [address] [address] [place] [address]- Care Team Related Persons Name: MARIANN MORGAN Address: Home [address] [place] [address] [address] [place] [phone] Care Team Personnel Name: SHAE DELGADO DO Position: P3 Physician - Anesthesiology Member Role: Pain Management Address: Address: [facility] [address] [place] [id number]- Name: TERESA CARLSON MD Position: P4 Physician - Urologist Member Role: Urologist Address: Address: [address] [place] [address]- Name: SAE AMARO MD Position: P4 Physician - Primary Care Member Role: Primary Care Physician Address: Address: [address] [place] [address]- Care Team Related Persons Name: EDDIE MARIANN Address: [address] [place], [place] [phone] FOR RECORDS PERTAINING TO PATIENTS WHO ARE OR HAVE BEEN ENROLLED IN A CHEMICAL DEPENDENCY/SUBSTANCEABUSE PROGRAM, SOME INFORMATION MAY BE OMITTED. This clinical summary was aggregated from multiple sources. Caution should be exercised in using it in the provision of clinical care. This summary normalizes information from multiple sources, and as a consequence, information in this document may materially change the coding, format and clinical context of patient data. In addition, data may be omitted in some cases. CLINICAL DECISIONS SHOULD BE BASED ON THE PRIMARY CLINICAL RECORDS. [facility] [employer] provides no warranty or guarantee of the accuracy or completeness of information in this document.
== END | disposition home or self-care (01) ==
LOC: PSN 06:55
PROVIDERS: Referring Provider Physician Assistant Medical; Visit Provider Physician Assistant Medical
DX: R00.2 Palpitations (principal)
CPT/HCPCS: 93225; 93226

== ENCOUNTER → 2023-06-13 | Outpatient (CLI) | payer MEDICARE, OTHER, SELFPAY ==
--- NOTE | 2023-06-13 06:51 | ECHOD_ITS ---
Reason For Study: CHEST PAIN Procedure This was a 2D Doppler, Color Flow transthoracic echocardiogram. Exam performed in department. Left Ventricle Normal LV size. Left ventricular systolic function is normal. The estimated ejection fraction is 60 %. Stage 1 diastolic dysfunction. No regional wall motion abnormalities noted. Right Ventricle Normal RV size. Normal systolic function. Atria Normal left atrium. Normal right atrium. Mitral Valve Normal mitral valve. Tricuspid Valve Normal tricuspid valve. Mild tricuspid valve insufficiency. Pulmonary artery systolic pressure is 25 mmHg. Aortic Valve Normal aortic valve. Mild (1+) aortic valve insufficiency. Pulmonic Valve Normal pulmonic valve. Great Vessels Normal aortic root. The pulmonary artery is normal size. Normal inferior vena cava. Pericardium/Pleural No pericardial effusion. MMode/2D Measurements & Calculations LVIDd: 3.6 cm IVSd: 1.3 cm LVOT diam: 2.1 cm LVIDs: 2.5 cm LVPWd: 0.98 cm LVOT area: 3.5 cm2 RVDd: 3.6 cm FS: 29.6 % Ao root diam: 3.9 cm LAV(MOD-bp): 44.2 ml LVAd ap4: 32.8 cm2 LAV(MOD-bp) Indexed: 21.0 ml/m2 LVLd ap4: 8.1 cm LAV(MOD-sp2): 52.3 ml EDV(MOD-sp4): 107.7 ml LAV(MOD-sp4): 33.7 ml EDV(sp4-el): 113.3 ml LVAs ap4: 17.3 cm2 LVLs ap4: 6.4 cm ESV(MOD-sp4): 38.1 ml ESV(sp4-el): 40.0 ml EF(MOD-sp4): 64.6 % EF(sp4-el): 64.7 % LVAd ap2: 31.6 cm2 SV(MOD-sp4): 69.6 ml SV(MOD-sp2): 63.2 ml LVLd ap2: 8.4 cm EDV(MOD-sp2): 96.8 ml EDV(sp2-el): 101.0 ml LVAs ap2: 16.8 cm2 LVLs ap2: 6.9 cm ESV(MOD-sp2): 33.6 ml ESV(sp2-el): 34.8 ml EF(MOD-sp2): 65.3 % SV(sp4-el): 73.4 ml LA dimension(2D): 4.0 cm LA A4 area: 14.2 cm2 RA A4 area: 13.6 cm2 TAPSE: 2.2 cm Time Measurements MV dec time: 0.21 sec Doppler Measurements & Calculations MV E max quinton: 77.6 cm/sec Lat Peak E' Quinton: 11.0 cm/sec Med Peak E' Quinton: 8.6 cm/sec MV A max quinton: 96.1 cm/sec E/E' lat: 7.0 E/E' med: 9.0 MV E/A: 0.81 Ao V2 max: 134.3 cm/sec AI max quinton: 364.3 cm/sec MV dec slope: 370.6 cm/sec2 Ao max P.2 mmHg AI max P.1 mmHg Ao V2 mean: 94.0 cm/sec Ao mean P.9 mmHg AI dec slope: 206.7 cm/sec2 Ao V2 VTI: 30.3 cm AI P1/2t: 516.2 msec AV (velocity ratio): 0.77 ESEQUIEL(I,D): 2.7 cm2 ESEQUIEL(V,D): 2.8 cm2 LV V1 max: 106.5 cm/sec SV(LVOT): 81.8 ml PA V2 max: 91.0 cm/sec LV V1 max P.5 mmHg PA max PG (full): 1.3 mmHg LV V1 mean P.6 mmHg LV V1 mean: 75.3 cm/sec LV V1 VTI: 23.2 cm TR max quinton: 232.3 cm/sec TR max P.6 mmHg ECHO/Echo Complete Interpretation Summary Normal LV size. Left ventricular systolic function is normal. The estimated ejection fraction is 60 %. Stage 1 diastolic dysfunction. Ordering Physician: Barbie Ennis Referring Physician: Barbie Ennis Performed By: Marly Khalil RDCS
--- OUTSIDE RECORDS SUMMARY | 2023-06-13 06:54 | XMS RPT_ITS | CCD ---
Author Name Unknown Address [address] [place] [address] Organization [facility] Care Team Providers Care Benzol Still Operator Name Role Phone PREM HOOPER, SAE Primary Care Physician Prem HOOPER, Sae Fink Primary Care Provider Prem HOOPER, Sae Fink Primary Care Provider PREM HOOPER, SAE Primary Care Physician SAE AMARO Primary Care Unavailable SAE AMARO Primary Care Unavailable ALDO HOOPER, DR MOORE Attending Unavaildeewy AMARO MD, SAE Primary Care Unavailable PREM HOOPER, SAE Primary Care Unavailable PREM HOOPER, SAE Attending Unavailable PREM HOOPER, SAE Primary Care Unavailable PREM HOOPER, SAE Attending Unavailable ALDO HOOPER, DR MOORE Attending Keely AMARO MD, SAE Primary Care Unavailable Allergies Allergy Classification Reported Allergen(s) Allergy Type Date of Onset Reaction(s) Facility (14 sources) Penicillins; Translations: [penicillins] Drug allergy 7 Hives, Swelling [facility] (5 sources) [place] silk preparation; Translations: [CORN] Drug Allergy 7 Hives, Swelling, Weal (disorder) [facility] Work Phone: (3 sources) Seasonal allergy; Translations: [SEASONAL ALLERGIES] Allergy to substance 7 Other: See Comments [facility] Work Phone: Medications Current Medications Medication [...] Daily, # 90 cap(s), 3 Refill(s), Pharmacy: [facility], Chronic hypertension, 182.9, cm, 06/14/22 9:11:00 [...] 97.9 [degF] Krislyn Aberegg PA Work Phone: [facility] 06-11-2022 08:24-0400 Body weight 90.72 kg Krislyn Aberegg PA Work Phone: [facility] 06-11-2022 08:24-0400 Diastolic blood pressure 80 mm[Hg] Krislyn Aberegg PA Work Phone: [facility] 06-11-2022 08:24-0400 Heart rate 77 /min Krislyn Aberegg PA Work Phone: [facility] 06-11-2022 08:24-0400 Respiratory rate 18 /min Krislyn Aberegg PA Work Phone: [facility] 06-11-2022 08:24-0400 SaO2% (BldA) [Mass fraction] 98 % Krislyn Aberegg PA Work Phone: [facility] 06-11-2022 08:24-0400 Systolic blood pressure 130 mm[Hg] Krislyn Aberegg PA Work Phone: [facility] 07-06-2021 08:13-0400 Body temperature 98.4 [degF] Pamela Athy PA-C Work Phone: [facility] 07-06-2021 08:13-0400 Body weight 87.54 kg Pamela Athy PA-C Work Phone: [facility] 07-06-2021 08:13-0400 Diastolic blood pressure 82 mm[Hg] Pamela Athy PA-C Work Phone: [facility] 07-06-2021 08:13-0400 Heart rate 99 /min Pamela Athy PA-C Work Phone: [facility] 07-06-2021 08:13-0400 Respiratory rate 20 /min Pamela Athy PA-C Work Phone: [facility] 07-06-2021 08:13-0400 SaO2% (BldA) [Mass fraction] 98 % Pamela Velasco PA-C Work Phone: [facility] 07-06-2021 08:13-0400 Systolic blood pressure 142 mm[Hg] Pamela Velasco PA-C Work Phone: [facility] Encounters Encounter Date Encounter Type Care Provider Facility Start: 05-07-2023 End: 05-08-[address] TERESA CARLSON MD Facility:A Start: 05-07-2023 End: 05-07-[address] TERESA CARLSON MD [facility] Start: 05-01-2023 End: 05-02-[address] TERESA CARLSON MD Facility:B Start: 03-28-2023 End: 03-28-2023 ambulatory SAE AMARO Facility:[facility] Start: 03-02-2023 End: 03-03-2023 ambulatory SAE AMARO MD Facility:B Start: 03-02-2023 End: 03-02-2023 Patient encounter procedure SAE AMARO MD [facility] Start: 08-30-2022 End: 08-31-2022 ambulatory SAE AMARO MD Facility:B Start: 08-30-2022 End: 08-30-2022 Patient encounter procedure SAE AMARO MD [facility] Start: 06-11-2022 End: 06-11-2022 ambulatory SAE AMARO Facility:[facility] Start: 06-11-2022 End: 06-11-2022 Office outpatient visit 25 minutes Chao HARVEY Work Phone: [facility] Procedures Date Procedure Procedure Detail [...] profile DTAP,TDAP,TD (2 - Td or Tdap) [facility] Start: 06-11-2022 End: 06-25-2022 Influenza virus A and B RNA and SARS-CoV-2 (COVID-19) N gene panel - Respiratory specimen by DIANE with probe detection COVID WITH FLUA+B, ROUTINE Microbiology Routine URI, acute Expected: 06/11/2022, Expires: 06/25/2022 [facility] Work Phone: Immunizations Immunization Date Immunization Notes Care Provider [facility] 01-04-2023 influenza virus vaccine, unspecified formulation DR TERESA CARLSON MD [facility] 01-04-2023 SARS-CoV-2 (COVID-19 ) [id number] DR TERESA CARLSON MD [facility] 01-09-2022 influenza virus vaccine, unspecified formulation DR TERESA CARLSON MD [facility] 12-13-2021 SARS-CoV-2 (CV19)mRNA-1273 bivalent vac SAE AMARO MD [facility] 12-13-2021 SARSCoV2 (CV19)mRNA-1273(6y+ bival jayashree DR TERESA CARLSON MD [facility] 07-26-2021 SARS-CoV-2 (COVID-19 ) mRNA-1273 vaccine SAE AMARO MD [facility] 01-24-2021 SARS-CoV-2 (COVID-19 ) [id number] vaccine SAE AMARO MD [facility] Payers Date Payer Category Payer Unknown HOSPITAL/MEDICAL GENERIC MEDICAL GENERIC [id number] 2022-Present [phone] [address] [place] [address] Indemnity [id number] 2022 Unknown [id number] 2019 Medicare MEDICARE MEDICAR E A AND B [id number] 2019-Present [phone] [place] [address] Medicare [id number] 2019 Medicare MEDICARE MEDICAR E A AND B [id number] 2019-Present [phone] [place] [address] Medicare [id number] 2019 Medicare [id number] 1955 Unknown [id number] 1954 Unknown [id number] 1954 Unknown [id number] 1955 Unknown [id number] Social History Date Type Detail Facility Start: 04-01-2018 End: 11-06-2018 Never smoked tobacco (finding) [facility] Sex Assigned At Male [facility] Start: 08-30-2016 End: 04-01-2018 Tobacco use and exposure Smokeless tobacco non-user [facility] Work Phone: Start: 07-06-2021 Alcohol intake Current non-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 Author Type: Physician Clam Dredger Type: Progress Notes Filed: 03/28/2023 9:21 AM Note Text: This note was created using [employer]. Subjective Connie Morgan is a 67 year [...] No past surgical history on file. ALLERGIES [place], Penicillins, and Seasonal Allergies MEDICATIONS naproxen sodium [...] (NASONEX) 50 mcg/actuation nasal spray Use 1 Shorter in the nose twice daily. pravastatin (PRAVACHOL) [...] detail warranting prompt ER evaluation. WES Jean [facility] 06-11-2022 Note HNO ID: [id number] Author: WES Jean Service: ? Author Type: Physician Clam Dredger Type: Progress Notes Filed: 06/11/2022 8:43 AM [...] detail warranting prompt ER evaluation. WES Jean [facility] 06-11-2022 Instructions WES Jean - 06/11/2022 8:41 [...] thin out mucus documented in this encounter [facility] 06-11-2022 History of Presen t illness Narrative This note was created using [employer]. Subjective Connie Morgan is a 66 year [...] evaluation. WES Jean documented in this encounter [facility] 07-06-2021 History of Presen t illness Narrative This note was created using [employer]. Subjective Connie Morgan is a 65 year [...] (NASONEX) 50 mcg/actuation nasal spray Use 1 Shorter in the nose twice daily. pravastatin (PRAVACHOL) [...] present. No frontal sinus tenderness. Mouth/Throat: Lips: [place]. Pharynx: Oropharynx is clear. Cardiovascular: Rate and [...] Pamela Velasco PA-C documented in this encounter [facility] Evaluation + Plan note Future Appointments Appointment Date:02/11/2021 11:30:00 AM Scheduled Provider:TERESA CARLSON MD Location:[facility] Appointment Type:[facility] Appointment Date:03/29/2021 09:00:00 AM Scheduled Provider:SAE AMARO MD Location:[facility] Appointment Type:PC OV Follow Up Future Scheduled TestsMagnesium Level 11/15/20Complete Blood Count 11/15/20Lipid Profile 11/15/20Complete Metabolic Panel 11/15/20 [facility] Evaluation + Plan note Future Appointments Appointment Date:03/29/2021 09:00:00 AM Scheduled Provider:SAE AMARO MD Location:[facility] Appointment Type:PC OV Follow Up Appointment Date:02/13/2022 09:00:00 AM Scheduled Provider:TERESA CARLSON MD Location:[facility] Appointment Type:URO OV Future Scheduled TestsCreatinine 02/11/21Magnesium Level 11/15/20Prostate Specific Antigen 02/11/22Complete Blood Count 11/15/20Lipid Profile 11/15/20Complete Metabolic Panel 11/15/20 [facility] Evaluation + Plan note Future Appointments Appointment Date:03/11/2021 09:00:00 AM Scheduled Provider:SAE AMARO MD Location:[facility] Appointment Type:PC OV Follow Up Appointment Date:02/13/2022 09:00:00 AM Scheduled Provider:TERESA CARLSON MD Location:[facility] Appointment Type:URO OV Future Scheduled TestsCreatinine 02/11/21Prostate Specific Antigen 02/11/22 [facility] Evaluation + Plan note Future Appointments Appointment Date:09/14/2021 08:30:00 AM Scheduled Provider:SAE AMARO MD Location:[facility] Appointment Type:PC OV Appointment Date:02/13/2022 09:00:00 AM Scheduled Provider:TERESA CARLSON MD Location:UROLOGY Appointment Type:URO OV Future Scheduled TestsCreatinine 02/11/21Prostate Specific Antigen 02/11/22 [facility] Evaluation + Plan note Future Appointments Appointment Date:03/17/2022 09:00:00 AM Scheduled Provider:SAE AMARO MD Location:[facility] Appointment Type:PC OV Follow Up Appointment Date:03/20/2022 09:00:00 AM Scheduled Provider:TERESA CARLSON MD Location:UROLOGY Appointment Type:URO OV Future Scheduled TestsCreatinine 02/11/21Creatinine 02/01/22Magnesium Level 03/16/22Prostate Specific Antigen 02/11/22Prostate Specific Antigen 02/01/22Prostate Specific Antigen 03/16/22Thyroid Stimulating Hormone 03/16/22Free T4 03/16/22Urine Culture 02/01/22Complete Blood Count 03/16/22Lipid Profile 03/16/22Complete Metabolic Panel 03/16/22 [facility] Evaluation + Plan note Future Appointments Appointment Date:03/17/2022 09:00:00 AM Scheduled Provider:SAE AMARO MD Location:[facility] Appointment Type:PC OV Follow Up Future Scheduled TestsCreatinine 02/01/22Prostate Specific Antigen 02/11/22Prostate Specific Antigen 02/01/22 [facility] Evaluation + Plan note Future Appointments Appointment Date:03/17/2022 09:00:00 AM Scheduled Provider:SAE AMARO MD Location:[facility] Appointment Type:PC OV Follow Up Diagnostic Tests PendingUrine Culture 03/13/22 Future Scheduled TestsCreatinine 02/01/22Prostate Specific Antigen 02/11/22Prostate Specific Antigen 02/01/22 [facility] Evaluation + Plan note Future Appointments Appointment Date:06/14/2022 09:00:00 AM Scheduled Provider:SAE AMARO MD Location:[facility] Appointment Type:PC OV Follow Up Appointment Date:05/07/2023 08:50:00 AM Scheduled Provider:TERESA CARLSON MD Location:UROLOGY Appointment Type:URO OV Future Scheduled TestsCreatinine 05/08/23Creatinine 02/01/22Magnesium Level 09/15/22Prostate Specific Antigen 02/11/22Prostate Specific Antigen 05/08/23Prostate Specific Antigen 02/01/22Complete Blood Count 09/15/22Lipid Profile 09/15/22Complete Metabolic Panel 09/15/22 [facility] Evaluation + Plan note Future Appointments Appointment Date:09/06/2022 08:30:00 AM Scheduled Provider:SAE AMARO MD Location:[facility] Appointment Type:PC OV Controlled Medication Appointment Date:05/07/2023 08:50:00 AM Scheduled Provider:TERESA CARLSON MD Location:UROLOGY Appointment Type:URO OV Future Scheduled TestsCreatinine 05/08/23Creatinine 02/01/22Prostate Specific Antigen 02/11/22Prostate Specific Antigen 05/08/23Prostate Specific Antigen 02/01/22 [facility] Evaluation + Plan note Future Appointments Appointment Date:03/08/2023 08:30:00 AM Scheduled Provider:SAE AMARO MD Location:[facility] Appointment Type:PC OV Follow Up Appointment Date:05/07/2023 08:50:00 AM Scheduled Provider:TERESA CARLSON MD Location:UROLOGY Appointment Type:URO OV Future Scheduled TestsCreatinine 05/08/23Prostate Specific Antigen 02/11/22Prostate Specific Antigen 05/08/23 [facility] Evaluation + Plan note Future Appointments Appointment Date:09/07/2023 08:30:00 AM Scheduled Provider:SAE AMARO MD Location:[facility] Appointment Type:PC OV Follow Up Appointment Date:05/23/2024 09:00:00 AM Scheduled Provider:TERESA CARLSON MD Location:UROLOGY Appointment Type:URO OV Future Scheduled TestsCreatinine 05/07/24Iron Level 09/07/23Prostate Specific Antigen 05/07/24Complete Blood Count 09/07/23Lipid Profile 09/07/23Complete Metabolic Panel 09/07/23 [facility] Sore throat- Primary Acute pharyngitis URI, acute Acute upper respiratory infections of unspecified site [facility] Narrative No data available for this section [facility] Hospital Discharge instructions No data available for this section [facility] Progress note No data available for this section [facility] Summary Purpose Family History No Family History [...] DATE CREATED AUTHOR AUTHOR'S ORGANIZ ATION 03/29/2023 [facility] DATE CREATED AUTHOR AUTHOR'S ORGANIZ ATION 05/23/2023 [facility] ([place]) Source Comments (unrecognize d section and content) In the event this informatio n is protected by the Federal Confidentiality of Alcohol and Drug Abuse Patient Records regulations: The Federal rules restrict any use of the information to criminally investigate or prosecute any alcohol or drug abuse patient.[facility] the event this information is protected by the Federal Confidentiality of Alcohol and Drug Abuse Patient Records regulations: The Federal rules restrict any use of the information to criminally investigate or prosecute any alcohol or drug abuse patient.[facility] Reason for Visit (unrecogniz ed section and content) Reason Comments Cough With sinus problem, sore throat x 2 days Care Teams (unrecognized sec tion and content) Benzol Still Operator Relationship Specialty Start Date End Date Sae Amaro MD PCP - General Family Medicine 05/20/16 Care Team (unrecognized sect ion and content) Care Team Personnel Name: SHAE DELGADO DO Position: P3 Physician - Anesthesiology Member Role: Pain Management Address: Address: [facility] [address] [place], [place] [address]- Name: SAE AMARO MD Position: P4 Physician - Primary Care Member Role: Primary Care Physician Address: Address: [address] [place] [address] [address] [place] [address]- Care Team Related Persons Name: MARIANN MORGAN Address: Home [address] [place] [address] [address] [place] [id number] Care Team Personnel Name: SHAE DELGADO DO Position: P3 Physician - Anesthesiology Member Role: Pain Management Address: Address: [facility] [address] [place], [place] [address]- Name: SAE AMARO MD Position: P4 Physician - Primary Care Member Role: Primary Care Physician Address: Address: [address] [place] [address] [address] [place] [id number]- Care Team Related Persons Name: MARIANN MORGAN Address: Home [address] [place] [address] [address] [place], [place] [id number] Care Team Personnel Name: SHAE DELGADO DO Position: P3 Physician - Anesthesiology Member Role: Pain Management Address: Address: [facility] [address] [place], [place] [id number]- Name: SAE AMARO MD Position: P4 Physician - Primary Care Member Role: Primary Care Physician Address: Address: [address] [place] [address] [address] [place] [address]- Care Team Related Persons Name: MARIANN MORGAN Address: Home [address] [place] [address] [address] [place]ATE [place], [place] [id number] Care Team Personnel Name: SHAE DELGADO DO Position: P3 Physician - Anesthesiology Member Role: Pain Management Address: Address: [facility] [address] [place] [id number]- Name: TERESA CARLSON MD Position: P4 Physician - Urologist Member Role: Urologist Address: Address: [address] [facility] [address] [place] [address]- Name: SAE AMARO MD Position: P4 Physician - Primary Care Member Role: Primary Care Physician Address: Address: [address] [facility] [address] [place] [address]- Care Team Related Persons Name: EDDIE MARIANN Address: [address] [place], [place] [phone] FOR RECORDS PERTAINING TO PATIENTS WHO ARE [...] BE BASED ON THE PRIMARY CLINICAL RECORDS. [facility] [employer] provides no warranty or guarantee of the accuracy or completeness of information in this document.
== END | disposition home or self-care (01) ==
LOC: CVS 06:51
PROVIDERS: Referring Provider Physician Assistant Medical; Visit Provider Physician Assistant Medical
DX: R07.9 Chest pain, unspecified (principal); I77.810 Thoracic aortic ectasia; I10 Essential (primary) hypertension
CPT/HCPCS: 93306

== ENCOUNTER 2023-11-26 11:39 | Emergency (ER) | payer MEDICARE, OTHER, SELFPAY ==
[2023-11-26 11:40] VITALS: BP 136/80; PULSE 93; RESP 18; TEMP 36.5; O2SAT 97; BMI 26.4
--- NOTE | 2023-11-26 14:06 | ED.RN ---
Pt and approached desk and informed this RN that they really need to get this problem checked out. This RN apologized for the wait. Pt's states an apology doesn't do us any good. This RN explained to pt and that the ED team is doing everything they can to get every pt seen in a timely manner but unfortunately the influx of pt's is outside of our control. Pt asked if a doppler evaluation for DVT could be done at an urgent care. This RN stated that they would be referred to an ED for that test. Pt stated they would try to go to another ED.
== END 2023-11-26 14:10 | disposition left against medical advice (07) ==
LOC: ED 14:14
DX: Z53.21 Procedure and treatment not carried out due to patient leaving prior to being seen by health care provider (principal)

== ENCOUNTER → 2023-12-10 | Outpatient (CLI) | payer MEDICARE, OTHER, SELFPAY ==
--- NOTE | 2023-12-10 18:50 | CT_ITS ---
STUDY: CTA CHEST REASON FOR EXAM: Male, 68 years old. TAA follow up, hx hearth cath, htn, labs 0.90 >60 RADIATION DOSAGE (If Supplied By Facility): CTDIvol = ( 12.88 ) mGy, DLP = ( 622.70 ) mGycm TECHNIQUE: The examination was performed with the intravenous administration of IV 100mL Isovue-370. Post-processing of the angiographic images was performed, with multiplanar reformation and 3D reconstruction. The protocol utilizes one or more of the following dose reduction techniques: automated exposure control, adjustment of mA and/or kV according to patient size,and/or use of iterative reconstruction technique. COMPARISON: No relevant prior comparison study available FINDINGS: LUNGS: No consolidation. Calcified granuloma right upper lobe. PLEURA: No pleural effusion. No pneumothorax. PULMONARY VESSELS: No pulmonary emboli identified. MEDIASTINUM: A few prominent lymph nodes in the mediastinum and hilar regions. HEART: Not enlarged. AORTA/GREAT VESSELS: Maximal transverse diameter of the ascending aorta 4.0 cm. Remainder of the thoracic aorta is normal caliber. No dissection. Bovine arch. UPPER ABDOMEN: No acute findings. BONES/SOFT TISSUES: No acute findings. OTHER: None. CT/CTA Chest W/WO Contrast IMPRESSION: Ascending aortic aneurysm 4.0 cm. No dissection. Electronically Signed: Lakshmi Ortiz MD at 8:07 EDT ,
[2023-12-10 19:11] LABS: CREATININE FINGERSTICK < 1.0 mg/dL (0.70-1.30); EGFR FINGERSTICK > 60.0000 mL/min (>60)
== END | disposition home or self-care (01) ==
PROVIDERS: Referring Provider Physician Assistant Medical; Visit Provider Physician Assistant Medical
DX: I77.810 Thoracic aortic ectasia (principal)
CPT/HCPCS: 71275; Q9967